=== PATIENT | male | born 1970 | race Caucasian/White ===

== ENCOUNTER 2022-04-02 10:54 | Day surgery (SDC) | payer MEDICAID, SELFPAY ==
[2022-04-02 11:21] VITALS: BP 113/82; PULSE 97; RESP 19; TEMP 36.7; O2SAT 98
[2022-04-02 12:54] VITALS: BP 117/61; PULSE 95; RESP 16; TEMP 36.5; O2SAT 98
--- NOTE | 2022-04-02 13:01 | W.PM.OP ---
Date of service: 04/02/22 Time of Service: 13:01 Operative Note Operative Note DATE OF PROCEDURE: 04/02/22 PRE-OP DIAGNOSIS: Chronic liver disease with tense ascites Tense ascites PROCEDURE: Therapeutic paracentesis 10 mL of 1% lidocaine with epinephrine ESTIMATED BLOOD LOSS: 0 PATHOLOGY: none sent TOURNIQUET TIME: 0 COMPLICATIONS: None Patient was transported to: same day Patient's condition: stable Implants: None Indications: Hill Augustine is a 51-year-old male with chronic alcoholic cirrhosis and tense ascites. He has undergone several rounds of therapeutic paracentesis, and now requires albumin repletion after large-volume paracentesis. He provided informed consent understanding the risks and benefits of therapeutic paracentesis. Findings: Straw-colored ascites Procedure Description: I started by performing a surveillance ultrasound of the abdomen and pelvis that demonstrated large volume ascites. There was a suitable target in the left lower quadrant. Next, I prepped and draped the anterior abdominal wall in the usual fashion. I then infiltrated the anterior abdominal wall using local anesthetic. With ultrasound guidance, I accessed the peritoneal cavity using the arrow brand paracentesis kit. Using negative pressure on the syringe, I advanced the needle into the peritoneum and immediately withdrew all colored ascitic fluid. I held the catheter in place and withdrew the needle. Next, I gently advanced the blunt catheter. I obtained a specimen for paracentesis cell count, ascitic albumin level, and ascitic protein level. Next, using Vacutainer's, I continued with therapeutic paracentesis. We used left lateral decubitus positioning to aid in optimal drainage. Paracentesis drained 7.5 L of ascites. He remained comfortable and hemodynamically stable throughout the procedure. I then removed the catheter and closed the access site using a 4-0 chromic suture in a [id number] fashion. I applied a Band-Aid, and transferred him to the day surgery recovery unit, where he will receive 50 g of 25% albumin intravenous infusion.
[2022-04-02] MEDS: ALBUMIN HUMAN 25 GM/100 ML BTL IV ×2 (13:07→13:43)
--- NOTE | 2022-04-02 13:09 | W.PM.DSUDISC ---
Discharge Plan Disposition Patient Disposition: HOME Condition: Good Discharge Details Reason For Visit: Paracentesis Attending Provider: James Barry Primary Care Provider: FOUZIA GONZALEZ Home Meds and New Rx's Prescriptions: Continued amitriptyline 10 mg tablet 10 mg PO QHS Ensure Active High Protein Liquid PO DAILY PRN omega 2-gni-zhi-fish oil [Fish Oil] 60-90-500 mg capsule 1 cap PO DAILY hydroxyzine HCl 25 mg tablet 25 mg PO TID PRN furosemide [Lasix] 20 mg tablet 20 mg PO DAILY magnesium oxide 400 mg magnesium capsule 400 mg PO DAILY polyethylene glycol 3350 [Miralax] 17 gram/dose powder 17 g PO DAILY omeprazole 20 mg capsule,delayed release(DR/EC) 20 mg PO DAILY spironolactone 100 mg tablet 100 mg PO DAILY Discharge Instructions Stand Alone Forms: DSU Post op Instructions Activity:: Activity as Tolerated Remove Dressings/Wound Care:: 24 hours Shower/Bathe:: 24 hours Diet:: Resume the diet recommended by your liver doctor Discharge Orders Discharge Orders: Discharge Order (Routine); Ordered 04/02/22 Ordered By: James Barry Discharge Data Discharge Comment: Valeria will call to schedule another paracentesis
[2022-04-02 14:07] VITALS: BP 112/74; PULSE 97; RESP 16; TEMP 36.7; O2SAT 100
[2022-04-02 14:11] LABS: Clarity Cloudy; Source Ascitic
[2022-04-02 14:12] LABS: Mononuclear Cells 89 %; Nucleated Cells 351 uL (0); Polynuclear Cells 11 %
[2022-04-02 22:43] LABS: Albumin, Body FLuid <1.0 g/dL (See Note)
[2022-04-03 12:43] LABS: Fluid Type Ascites; Protein,Total, BF 1.7 g/dL
== END 2022-04-02 14:32 | disposition home or self-care (01) ==
PROVIDERS: PCP Family Medicine; Visit Provider Surgery
PROC: 0W9G3ZZ Drainage of Peritoneal Cavity, Percutaneous Approach (ICD-10-PCS; CPT 49082; principal; 2022-04-02 11:30)
DX: K76.89 Other specified diseases of liver (principal); R18.8 Other ascites
CPT/HCPCS: 49082; 82042; 84157; 89051

== ENCOUNTER 2022-04-16 06:21 | Day surgery (SDC) | payer MEDICAID, SELFPAY ==
[2022-04-16 06:35] VITALS: BP 95/65; PULSE 105; RESP 18; TEMP 36.7; O2SAT 97
[2022-04-16] MEDS: Normal Saline Flush 10 ML SYR IV ×2 (07:08→09:00)
--- NOTE | 2022-04-16 07:09 | W.PM.DSUDISC ---
Discharge Plan Disposition Patient Disposition: HOME Condition: Good Discharge Details Reason For Visit: tense ascites Attending Provider: James Barry Primary Care Provider: FOUZIA GONZALEZ Home Meds and New Rx's Prescriptions: Continued amitriptyline 10 mg tablet 10 mg PO QHS Ensure Active High Protein Liquid 125 ml PO DAILY PRN omega 5-yvw-jec-fish oil [Fish Oil] 60-90-500 mg capsule 1 cap PO DAILY hydroxyzine HCl 25 mg tablet 25 mg PO TID PRN furosemide [Lasix] 20 mg tablet 20 mg PO DAILY magnesium oxide 400 mg magnesium capsule 400 mg PO DAILY polyethylene glycol 3350 [Miralax] 17 gram/dose powder 17 g PO DAILY omeprazole 20 mg capsule,delayed release(DR/EC) 20 mg PO DAILY spironolactone 100 mg tablet 100 mg PO DAILY Discharge Instructions Instructions: Ascites (DC), Paracentesis (DC) Additional Instructions: Schedule next paracentisis with office for week of 04/19 Activity:: Activity as Tolerated Remove Dressings/Wound Care:: 24 hours Shower/Bathe:: 24 hours Diet:: As Tolerated Discharge Data Discharge Comment: Notify Jhonny prior to discharge DS: Diagnosis Discharge Diagnosis (1) Ascites due to alcoholic cirrhosis: Status: Acute Asessment and Plan: Therapuetic paracentesisi today
[2022-04-16 08:03] VITALS: BP 92/61; PULSE 82; RESP 16; TEMP 36.7; O2SAT 98
[2022-04-16] MEDS: ALBUMIN HUMAN 25 GM/100 ML BTL IV (08:26)
[2022-04-16 09:11] VITALS: BP 93/61; PULSE 81; RESP 12; TEMP 36.8; O2SAT 99
--- NOTE | 2022-04-16 09:48 | W.PM.DSUDISC ---
Discharge Plan Disposition Patient Disposition: HOME Condition: Good Discharge Details Reason For Visit: tense ascites Attending Provider: James Barry Primary Care Provider: FOUZIA GONZALEZ Home Meds and New Rx's Prescriptions: Continued amitriptyline 10 mg tablet 10 mg PO QHS Ensure Active High Protein Liquid 125 ml PO DAILY PRN omega 1-vce-csj-fish oil [Fish Oil] 60-90-500 mg capsule 1 cap PO DAILY hydroxyzine HCl 25 mg tablet 25 mg PO TID PRN furosemide [Lasix] 20 mg tablet 20 mg PO DAILY magnesium oxide 400 mg magnesium capsule 400 mg PO DAILY polyethylene glycol 3350 [Miralax] 17 gram/dose powder 17 g PO DAILY omeprazole 20 mg capsule,delayed release(DR/EC) 20 mg PO DAILY spironolactone 100 mg tablet 100 mg PO DAILY Discharge Instructions Instructions: Ascites (DC), Paracentesis (DC) Additional Instructions: Schedule next paracentisis with office for week of 04/19 Stand Alone Forms: Stacie Phelps (FREDRICKU) Activity:: Activity as Tolerated Remove Dressings/Wound Care:: 24 hours Shower/Bathe:: 24 hours Diet:: As Tolerated Discharge Orders Discharge Orders: Discharge Order (Routine); Ordered 04/16/22 Ordered By: James Barry DS: Diagnosis Discharge Diagnosis (1) Ascites due to alcoholic cirrhosis: Status: Acute
--- NOTE | 2022-04-16 10:25 | W.PM.OP ---
Date of service: 04/16/22 Time of Service: 10:25 Operative Note Operative Note DATE OF PROCEDURE: 04/16/22 PRE-OP DIAGNOSIS: alcoholic cirrhosis with tense ascites POST-OP DIAGNOSIS: same PROCEDURE: therapeutic paracentesis SURGEON: James Barry ANESTHESIA TYPE: Local By Surgeon Refer to Anesthesia Record ESTIMATED BLOOD LOSS: 0 COMPLICATIONS: None Patient's condition: stable Procedure Description: I began by first performing a diagnostic ultrasound to identify ascites. Next, I prepped and draped the anterior abdominal wall in the usual fashion. Then, with the assistance of the ultrasound, I infiltrated the skin of the right lower quadrant with 1% epinephrine. Again, using the ultrasound, I anesthetized down to the peritoneal level. Next, under the direct vision of the ultrasound, I advanced the Kerr needle into the peritoneal cavity. I then affixed catheter tubing and drained into a 1 L Vacutainer. As the ascites drained, I gently assisted the patient into the right lateral decubitus position to assist with drainage. I drained 7.5 L of straw-colored ascitic fluid. Upon completion of drainage, I gently removed the Kerr needle and closed the site with a interrupted [id number] suture. Applied bandages, and returned the patient to the recovery unit for further monitoring.
== END 2022-04-16 10:08 | disposition home or self-care (01) ==
PROVIDERS: PCP Family Medicine; Visit Provider Surgery
PROC: 0W9G3ZZ Drainage of Peritoneal Cavity, Percutaneous Approach (ICD-10-PCS; CPT 49082; principal; 2022-04-16 07:30)
DX: K70.31 Alcoholic cirrhosis of liver with ascites (principal)
CPT/HCPCS: 49082; 96365

== ENCOUNTER 2022-05-13 06:11 | Day surgery (SDC) | payer MEDICAID, SELFPAY ==
[2022-05-13 06:24] VITALS: BP 109/83; PULSE 100; RESP 17; TEMP 37; O2SAT 97
[2022-05-13] MEDS: Lactated Ringers 1,000 ML 30 ML IV (06:40)
--- NOTE | 2022-05-13 07:11 | W.PM.DS.N ---
Date of service: 05/13/22 Discharge Plan Disposition Patient Disposition: HOME Condition: Good Discharge Details Reason For Visit: paracentesis Attending Provider: James Barry Primary Care Provider: FOUZIA GONZALEZ Home Meds and New Rx's Prescriptions: No Action amitriptyline 10 mg tablet 10 mg PO QHS Ensure Active High Protein Liquid 125 ml PO DAILY PRN omega 6-obx-wbe-fish oil [Fish Oil] 60-90-500 mg capsule 1 cap PO DAILY hydroxyzine HCl 25 mg tablet 25 mg PO TID PRN furosemide [Lasix] 20 mg tablet 20 mg PO DAILY magnesium oxide 400 mg magnesium capsule 400 mg PO DAILY polyethylene glycol 3350 [Miralax] 17 gram/dose powder 17 g PO DAILY omeprazole 20 mg capsule,delayed release(DR/EC) 20 mg PO DAILY spironolactone 100 mg tablet 100 mg PO DAILY DS: Data Vitals/I&O Vitals and I&O: Vital Signs Temperature 98.6 F 05/13/22 06:24 Pulse 100 H 05/13/22 06:24 Pulse Rhythm Regular 05/13/22 06:24 Respiratory Rate 17 05/13/22 06:24 Blood Pressure 109/83 05/13/22 06:24 Pulse Oximetry 97 05/13/22 06:24 Oxygen Delivery Method Room Air 05/13/22 06:24 Oxygen Flow Rate 0 05/13/22 06:24 Pain Level 2 05/13/22 06:24 Intake & Output 05/12/22 05/12/22 05/13/22 11:59 23:59 11:59 Weight 152 lb 12.485 oz PFSH All Active Problems Ascites due to alcoholic cirrhosis (Acute) Tobacco user (Acute) Liver mass (Acute) Hyponatremia (Acute) Hypokalemia (Acute) Elevated liver enzymes (Acute) Ascites due to alcoholic cirrhosis (Acute) Alcoholism (Acute) Medical History ADHD Anxiety Deficiency of folic acid Hyperlipidemia Impaired fasting glucose Leukocytosis Mixed anxiety and depressive disorder Subclinical hyperthyroidism Social History Smoking/Tobacco Use Status: Current every day Tobacco Type: cigarettes Years smoked: 35 Smoking risk assessment performed?: Yes Alcohol Intake: former Substance use type: does not use Do you feel safe at home: Yes Do you feel safe in your relationship?: Yes
--- NOTE | 2022-05-13 07:14 | W.PM.DSUDISC ---
Discharge Plan Disposition Patient Disposition: HOME Condition: Good Discharge Details Reason For Visit: paracentesis Attending Provider: James Barry Primary Care Provider: FOUZIA GONZALEZ Home Meds and New Rx's Prescriptions: Continued amitriptyline 10 mg tablet 10 mg PO QHS Ensure Active High Protein Liquid 125 ml PO DAILY PRN omega 8-wwf-pql-fish oil [Fish Oil] 60-90-500 mg capsule 1 cap PO DAILY hydroxyzine HCl 25 mg tablet 25 mg PO TID PRN furosemide [Lasix] 20 mg tablet 20 mg PO DAILY magnesium oxide 400 mg magnesium capsule 400 mg PO DAILY polyethylene glycol 3350 [Miralax] 17 gram/dose powder 17 g PO DAILY omeprazole 20 mg capsule,delayed release(DR/EC) 20 mg PO DAILY spironolactone 100 mg tablet 100 mg PO DAILY Discharge Instructions Instructions: Paracentesis (DC) Additional Instructions: 1. If tolerated, consume a soft, low fiber diet for 1-2 days[address] not drive, drink alcohol, operate machinery, make critical decisions, or do activities that require coordination or balance for 24 hours. 3. Go directly to the emergency room if you notice any of the following: Develop chills (warm to touch), or if you have a thermometer and your temperature is above 101 Difficulty breathing or difficultly swallowing Persistent vomiting Severe abdominal pain, other than gas cramps Severe chest pain Black, tarry stools Any bleeding ? exceeding one tablespoon 4. Call your physician if the site where your intravenous was started becomes red, swollen, painful, and warm to touch. 5. Your physician has reviewed your pre-procedure medications. Please continue to take those medications as previously ordered. You will be given specific information/education regarding any changes to your medications before leaving. Activity:: Activity as Tolerated Remove Dressings/Wound Care:: 24 hours Shower/Bathe:: 24 hours Diet:: As Tolerated Discharge Orders Discharge Orders: Discharge Order (Routine); Ordered 05/13/22 Ordered By: James Barry Discharge Data Discharge Comment: d/c home after albumin infusion DS: Diagnosis Discharge Diagnosis (1) Ascites due to alcoholic cirrhosis: Start date: 05/13/22 Status: Acute Asessment and Plan: uncomplicated paracentesis of 8 liters ascises; replete with 50 gm Albumin IV
--- NOTE | 2022-05-13 07:17 | W.PM.OP ---
Date of service: 05/13/22 Time of Service: 08:30 Operative Note Operative Note DATE OF PROCEDURE: 05/13/22 PRE-OP DIAGNOSIS: tense ascites POST-OP DIAGNOSIS: same PROCEDURE: therapeutic parenthesis SURGEON: James Barry ANESTHESIA TYPE: Local By Surgeon Refer to Anesthesia Record ESTIMATED BLOOD LOSS: 0 PATHOLOGY: other (Ascites for cell count, total protein, and albumin) COMPLICATIONS: None Patient was transported to: same day Patient's condition: stable Indications: Hill is a 51-year-old male with alcoholic cirrhosis and tense ascites. Over the past several days, he has had increasing lethargy and abdominal discomfort. He presents today for therapeutic paracentesis. He provided informed consent. Procedure Description: I started by performing a limited ultrasound of the abdomen to identify appropriate site for paracentesis. Next, I selected the left lower quadrant as the ideal site for paracentesis. I then prepped and draped the abdomen. Next, using ultrasound guidance, I anesthetized the skin with 1% lidocaine with epinephrine. I used the ultrasound to guide the needle down to the peritoneal level which was also anesthetized. I then made a small incision in the skin with a 11 blade scalpel. Next, I advanced the 5 Vietnamese paracentesis needle and catheter through the incision and into the peritoneal cavity under the direct vision of the ultrasound. I aspirated straw-colored appearing ascites. Next, I gently advance the catheter and remove the needle. I affixed drainage tubing, and began draining the ascites with the assistance of Vacutainer's. I drained 8 L of ascites. As the flow decreased, I assisted the patient to the left lateral decubitus position to improve drainage. Once the ascites stopped flowing, I removed the catheter and used a Band-Aid to dress the wound.
[2022-05-13] MEDS: Lidocaine 1% Pres-Free 5 ML VIAL IJ (07:35)
--- NOTE | 2022-05-13 07:44 | PAPNONF_PTH ---
PATIENT: Hill Augustine LOC: [facility] U#:[id number] AGE/SX: 51/M ROOM: RE05/13/[address]: James Barry MD : [id number] BED: DIS: 05/13/2022 SPEC #: [id number] RECD: 05/13/22 13:03 STATUS: SALMarcie REQ #: [id number] MYLA: 05/13/22 07:[address]: James Barry DEPT: [facility] Cytology RECD BY: Lee Ann Minor ENTERED: 05/13/22 13:04 SP TYPE: DUANE PICKENS DR: FOUZIA BEYER MD Tissues: 1 - BODY FLUID CYTO(NOT S/U/N/EM)[facility] Procedures: BODY FLUID CYTO(NOT SPU/UR/NIP/ENDOM)[facility] Comments: [id number] (TOTAL VOLUME = 900 ml)
[2022-05-13 08:28] VITALS: BP 103/71; PULSE 88; RESP 18; TEMP 36.4; O2SAT 99
[2022-05-13] MEDS: ALBUMIN HUMAN 25 GM/100 ML BTL IV (08:45)
[2022-05-13 09:31] LABS: Clarity Clear; Mononuclear Cells 99 %; Nucleated Cells 384 uL (0); Polynuclear Cells 1 %; Source Peritoneal
[2022-05-13 17:32] LABS: Albumin, Body FLuid 1.1 g/dL (See Note)
[2022-05-14 12:51] LABS: Protein,Total, BF 2.4 g/dL
== END 2022-05-13 09:20 | disposition home or self-care (01) ==
PROVIDERS: PCP Family Medicine; Visit Provider Surgery
PROC: 0W9G3ZZ Drainage of Peritoneal Cavity, Percutaneous Approach (ICD-10-PCS; CPT 49082; principal; 2022-05-13 07:30)
DX: K70.31 Alcoholic cirrhosis of liver with ascites (principal)
CPT/HCPCS: 49082; 82042; 84157; 88104; 89051

== ENCOUNTER 2022-06-08 10:53 | PSDC | payer MEDICAID, SELFPAY ==
--- NOTE | 2022-06-08 09:22 | PDOC.DSDIS_ITS ---
Discharge Plan Disposition Patient Disposition: HOME Condition: Good Discharge Details Reason For Visit: paracentesis Attending Provider: James Barry Primary Care Provider: TRISHA GARIBAYBertrand Chaffee Hospital Course Hospital Course: uncomplicated paracentesis with albumin infusion Home Meds and New Rx's Prescriptions: Continued amitriptyline 10 mg tablet 10 mg PO QHS Ensure Active High Protein Liquid 125 ml PO DAILY PRN omega 5-dgc-rnn-fish oil [Fish Oil] 60-90-500 mg capsule 1 cap PO DAILY hydroxyzine HCl 25 mg tablet 25 mg PO TID PRN furosemide [Lasix] 20 mg tablet 20 mg PO DAILY magnesium oxide 400 mg magnesium capsule 400 mg PO DAILY polyethylene glycol 3350 [Miralax] 17 gram/dose powder 17 g PO DAILY omeprazole 20 mg capsule,delayed release(DR/EC) 20 mg PO DAILY spironolactone 100 mg tablet 100 mg PO DAILY Discharge Instructions Additional Instructions: [address], drink alcohol, operate machinery, make critical decisions, or do activities that require coordination or balance for 24 hours. 2. Go directly to the emergency room if you notice any of the following: Develop chills (warm to touch), or if you have a thermometer and your temperature is above 101 Difficulty breathing or difficultly swallowing Persistent vomiting Severe abdominal pain, other than gas cramps Severe chest pain Black, tarry stools Any bleeding ? exceeding one tablespoon 3. Call your physician if the site where your intravenous was started becomes red, swollen, painful, and warm to touch. 4. Your physician has reviewed your pre-procedure medications. Please continue to take those medications as previously ordered. You will be given specific information/education regarding any changes to your medications before leaving. Activity:: Activity as Tolerated Remove Dressings/Wound Care:: 24 hours Shower/Bathe:: 24 hours Equipment/Supplies:: No Equipment Needed Diet:: As Tolerated DS: Diagnosis Discharge Diagnosis (1) Ascites due to alcoholic cirrhosis: Status: Acute Asessment and Plan: Schedule next paracentesis as needed
--- NOTE | 2022-06-08 09:25 | ROE_ITS ---
Date of service: 06/08/22 Operative Note Operative Note DATE OF PROCEDURE: 06/08/22 PRE-OP DIAGNOSIS: Tense ascites POST-OP DIAGNOSIS: same PROCEDURE: Therapeutic parenthesis SURGEON: Chapito Barry Refer to Anesthesia Record ESTIMATED BLOOD LOSS: 10 COMPLICATIONS: None Patient was transported to: same day Patient's condition: stable Indications: Hill is a 51-year-old male with alcoholic cirrhosis and ascites. He is treated with multiple medications to help minimize ascites, but he continues to develop significant amount of abdominal discomfort as well as fatigue and shortness of breath associated with the fluid. Procedure Description: I started by performing a limited ultrasound of the abdomen to identify appropriate site for paracentesis. Next, I selected the left abdomen as the ideal site for paracentesis. I then prepped and draped the abdomen. Next, using ultrasound guidance, I anesthetized the skin with 1% lidocaine with epinephrine. I used the ultrasound to guide the needle down to the peritoneal level which was also anesthetized. I then made a small incision in the skin with a 11 blade scalpel. Next, I advanced the 5 Upper Sorbian paracentesis needle and catheter through the incision and into the peritoneal cavity under the direct vision of the ultrasound. I aspirated straw-colored appearing ascites. Next, I gently advance the catheter and remove the needle. I affixed drainage tubing, and began draining the ascites with the assistance of Vacutainer's. I drained 7.5 L of ascites. As the flow decreased, I assisted the patient to the left lateral decubitus position to improve drainage. Once the ascites stopped flowing, I removed the catheter and used Band-Aid to address wound.
[2022-06-08 11:25] VITALS: BP 120/84; PULSE 105; RESP 18; TEMP 36.2; O2SAT 98
[2022-06-08] MEDS: ALBUMIN HUMAN 25 GM/100 ML BTL IV ×2 (12:45→13:22)
[2022-06-08 12:47] VITALS: BP 119/78; PULSE 103; RESP 18; TEMP 37.5; O2SAT 100
--- NOTE | 2022-06-08 12:51 | W.PM.DSUDISC ---
Discharge Plan Disposition Patient Disposition: HOME Condition: Good Discharge Details Reason For Visit: paracentesis Attending Provider: James Barry Primary Care Provider: RICOSAY GARIBAYClifton-Fine Hospital Course Hospital Course: uncomplicated paracentesis Home Meds and New Rx's Prescriptions: Continued amitriptyline 10 mg tablet 10 mg PO QHS Ensure Active High Protein Liquid 125 ml PO DAILY PRN omega 3-uve-usm-fish oil [Fish Oil] 60-90-500 mg capsule 1 cap PO DAILY hydroxyzine HCl 25 mg tablet 25 mg PO TID PRN furosemide [Lasix] 20 mg tablet 20 mg PO DAILY magnesium oxide 400 mg magnesium capsule 400 mg PO DAILY polyethylene glycol 3350 [Miralax] 17 gram/dose powder 17 g PO DAILY omeprazole 20 mg capsule,delayed release(DR/EC) 20 mg PO DAILY spironolactone 100 mg tablet 100 mg PO DAILY Discharge Instructions Additional Instructions: [address], drink alcohol, operate machinery, make critical decisions, or do activities that require coordination or balance for 24 hours. 2. Go directly to the emergency room if you notice any of the following: Develop chills (warm to touch), or if you have a thermometer and your temperature is above 101 Difficulty breathing or difficultly swallowing Persistent vomiting Severe abdominal pain, other than gas cramps Severe chest pain Black, tarry stools Any bleeding ? exceeding one tablespoon 3. Call your physician if the site where your intravenous was started becomes red, swollen, painful, and warm to touch. 4. Your physician has reviewed your pre-procedure medications. Please continue to take those medications as previously ordered. You will be given specific information/education regarding any changes to your medications before leaving. Activity:: Activity as Tolerated Remove Dressings/Wound Care:: 24 hours Shower/Bathe:: 24 hours Equipment/Supplies:: No Equipment Needed Diet:: As Tolerated Discharge Orders Discharge Orders: Discharge Order (Routine); Ordered 06/08/22 Ordered By: James Barry Discharge Data Discharge Physician: James Barry DS: Diagnosis Discharge Diagnosis (1) Ascites due to alcoholic cirrhosis: Status: Acute Asessment and Plan: schedule next paracentesis as needed
[2022-06-08 13:54] LABS: Source Peritoneal
[2022-06-08 13:55] LABS: Clarity Clear; Mononuclear Cells 98 %; Nucleated Cells 401 uL (0); Polynuclear Cells 2 %
[2022-06-08 22:02] LABS: Albumin, Body FLuid 1.3 g/dL (See Note)
[2022-06-09 14:50] LABS: Fluid Type LEFT PARACENTESIS; Protein,Total, BF 2.7 g/dL
== END 2022-06-08 14:15 | disposition home or self-care (01) ==
LOC: SUR 10:54
PROVIDERS: PCP Family Medicine; Visit Provider Surgery
PROC: 0W9G3ZZ Drainage of Peritoneal Cavity, Percutaneous Approach (ICD-10-PCS; CPT 49082; principal; 2022-06-08 11:45)
DX: K70.31 Alcoholic cirrhosis of liver with ascites (principal)
CPT/HCPCS: 49082; 82042; 84157; 89051

== ENCOUNTER 2022-07-06 10:57 | Day surgery (SDC) | payer MEDICAID, SELFPAY ==
--- NOTE | 2022-07-06 10:15 | ROE_ITS ---
Date of service: 07/06/22 Time of Service: 13:33 Operative Note Operative Note DATE OF PROCEDURE: 07/06/22 PRE-OP DIAGNOSIS: ascitis secondary to alcoholic cirrhosis POST-OP DIAGNOSIS: same PROCEDURE: parasenthesis SURGEON: Siobhan Blakely ANESTHESIA TYPE: Local By Surgeon Refer to Anesthesia Record ESTIMATED BLOOD LOSS: 0 PATHOLOGY: none sent COMPLICATIONS: None Patient was transported to: same day Patient's condition: stable Indications: Mr. Augustine is a pleasant 51 year old male with alcoholic cirrhosis and recurrent ascitis who comes in again today for a parasenthesis. Last time he was here was about 2 1/2 weeks ago. Findings: Clear yellow fluid Procedure Description: After informed consent was obtained from the patient was placed on the gurney table in a supine position. The left lower quadrant was prepped and draped in a sterile surgical fashion. 1% lidocaine was injected into the dermis and down to the fascia. A small incision was made with an 11 blade. The needle and sheath that came in the kit was slowly advanced through the subcutaneous tissue and the peritoneum into the abdomen. As soon as serous fluid was suctioned the sheath was advanced over the needle into the abdomen and the needle was removed. The sheath was then attached to suction canisters and a total of 6.8 L of serous fluid was removed without complication. The patient's blood pressure was checked throughout the procedure and continued to stay stable in the low 100s. Once the procedure was done the sheath was removed and a pressure dressing was applied over the incision. Patient did well and there were no immediate complications. He was taken back to [facility] and given albumin
--- NOTE | 2022-07-06 10:17 | W.PM.DSUDISC ---
Discharge Plan Disposition Patient Disposition: HOME Condition: Good Discharge Details Reason For Visit: parasenthesis Attending Provider: Siobhan Blakely Primary Care Provider: FOUZIA GONZALEZ Home Meds and New Rx's Prescriptions: New zolpidem [Ambien] 5 mg tablet 5 mg PO QHS PRNQty: 90 3RF Continued amitriptyline 10 mg tablet 10 mg PO QHS Ensure Active High Protein Liquid 125 ml PO DAILY PRN omega 6-oak-vms-fish oil [Fish Oil] 60-90-500 mg capsule 1 cap PO DAILY hydroxyzine HCl 25 mg tablet 25 mg PO TID PRN furosemide [Lasix] 20 mg tablet 20 mg PO DAILY magnesium oxide 400 mg magnesium capsule 400 mg PO DAILY polyethylene glycol 3350 [Miralax] 17 gram/dose powder 17 g PO DAILY omeprazole 20 mg capsule,delayed release(DR/EC) 20 mg PO DAILY spironolactone 100 mg tablet 100 mg PO DAILY tramadol 100 mg tablet 100 mg PO BID PRN (Reason: pain) Qty: 20 0RF Rx Instructions: take 1 tab by mouth as needed for pain Discontinued zolpidem [Ambien] 5 mg tablet 5 mg PO QHS PRN (Reason: sleep) Qty: 14 0RF Rx Instructions: take one tab by mouth at nighttime as needed for insomnia Discharge Instructions Additional Instructions: Activity at Home after surgery: 1. As tolerated Diet, Nutrition, & wound healin. heart Healthy, low sodium Pain Medications: 1. Tylenol 650mg every 6 hours as needed For Constipation: 1. Take Milk of Magnesia or MiraLax as needed for constipation Other: 1. You may shower daily. Please call our office if you develop: 1. Fevers >101.5 2. Nausea or Vomiting 3. Worsening pain 4. Redness and thick discharge from the wounds If after hours please call the Hospital at and ask to speak to the on-call surgeon Activity:: Activity as Tolerated Shower/Bathe:: 24 hours Diet:: As Tolerated Discharge Orders Discharge Orders: Discharge Order (Routine); Ordered 07/06/22 Ordered By: Siobhan Blakely
[2022-07-06 11:31] VITALS: BP 111/77; PULSE 96; RESP 18; TEMP 36.7; O2SAT 99
[2022-07-06 13:35] VITALS: BP 100/68; PULSE 89; RESP 18; TEMP 36.5; O2SAT 100
--- NOTE | 2022-07-06 13:37 | W.PREOPHP ---
Assessment and Plan Assessment and plan (1) Ascites due to alcoholic cirrhosis: Status: Acute Assessment and plan: Mr. Augustine is here today for another parasenthesis. The proceedure was again explained as well as the risks, benefits and complications. Questions were entertained and answered and he wished to proceed. History of Present Illness Narrative: Mr. Augustine is a pleasant 51 year old male with a hx of alcoholic cirrhosis and ascitis who has been getting parasenthesis regularly. His last one was 2 1/2 weeks ago. He is feeling full and having a lot of pressure especially around his umbilical hernia. He denies any SOB. he has had no fevers or chills. Review of Systems All systems reviewed & are unremarkable except as noted in HPI and below PFSH All Active Problems (Updated 07/06/22 @ 13:41 by Siobhan Blakely MD) Ascites due to alcoholic cirrhosis (Acute) Tobacco user (Acute) Liver mass (Acute) Hyponatremia (Acute) Hypokalemia (Acute) Elevated liver enzymes (Acute) Alcoholism (Acute) Medical History ADHD Anxiety Deficiency of folic acid Hyperlipidemia Impaired fasting glucose Leukocytosis Mixed anxiety and depressive disorder Subclinical hyperthyroidism Social History Smoking/Tobacco Use Status: Current every day Tobacco Type: cigarettes Years smoked: 35 Smoking risk assessment performed?: Yes Alcohol Intake: former Drug use: Occasionally Substance use type: marijuana Details: Bowl w/friends on occassion Do you feel safe at home: Yes Do you feel safe in your relationship?: Yes Meds Allergies and Home Medications Allergies Allergy/AdvReac Type Severity Reaction Status Date / Time COVID-19 (SARS-CoV-2) Allergy Intermediate Skin Rash Verified 05/13/22 06:30 vaccine, alirio chlordiazepoxide Allergy Unknown Verified 05/13/22 06:30 levofloxacin Allergy Unknown Hives Verified 05/13/22 06:30 naltrexone AdvReac Intermediate abdominal Verified 05/13/22 06:30 pain-Pt is not sure Home Medications Medication Instructions Recorded Confirmed Type amitriptyline 10 mg tablet 10 mg PO QHS 03/31/22 07/06/22 History food supplemt, lactose-reduced 125 ml PO DAILY PRN 03/31/22 07/06/22 History (Ensure Active High Protein oral liquid) furosemide 20 mg tablet (Lasix) 20 mg PO DAILY 03/31/22 07/06/22 History hydroxyzine HCl 25 mg tablet 25 mg PO TID PRN 03/31/22 07/06/22 History magnesium oxide 400 mg PO DAILY 03/31/22 07/06/22 History omega 5-eut-yir-fish oil 60 mg-90 1 cap PO DAILY 03/31/22 07/06/22 History mg-500 mg capsule (Fish Oil) omeprazole 20 mg capsule,delayed 20 mg PO DAILY 03/31/22 07/06/22 History release polyethylene glycol 3350 17 17 g PO DAILY 03/31/22 07/06/22 History gram/dose oral powder (Miralax) spironolactone 100 mg tablet 100 mg PO DAILY 03/31/22 07/06/22 History tramadol 100 mg tablet 100 mg PO BID PRN pain #20 tabs 06/12/22 07/06/22 Rx zolpidem 5 mg tablet (Ambien) 5 mg PO QHS PRN #90 tabs 07/06/22 Rx Exam Const General: comfortable and no acute distress Orientation: alert and oriented x3 HENMT Head: normocephalic and atraumatic Resp Effort & Inspection: normal respiratory effort GI Inspection: distended Palpation: soft and ascites Results Last Vital Signs Temp 98.1 F 07/06/22 11:31 Pulse 96 H 07/06/22 11:31 Resp 18 07/06/22 11:31 BP 111/77 07/06/22 11:31 Pulse Ox 99 07/06/22 11:31
[2022-07-06 14:15] VITALS: BP 100/63; PULSE 86; RESP 18; TEMP 36.5; O2SAT 100
[2022-07-06] MEDS: ALBUMIN HUMAN 25 GM/100 ML BTL IVPB (14:16)
[2022-07-06] MEDS: ALBUMIN HUMAN 25 GM/100 ML BTL 100 GM (14:17)
[2022-07-06 22:10] LABS: Albumin, Body FLuid 1.3 g/dL (See Note)
[2022-07-07 13:01] LABS: Fluid Type Peritoneal; Protein,Total, BF 2.8 g/dL
== END 2022-07-06 14:55 | disposition home or self-care (01) ==
PROVIDERS: PCP Family Medicine; Visit Provider Surgery
PROC: 0W9G3ZZ Drainage of Peritoneal Cavity, Percutaneous Approach (ICD-10-PCS; CPT 49082; principal; 2022-07-06 12:15)
DX: K70.31 Alcoholic cirrhosis of liver with ascites (principal)
CPT/HCPCS: 49082; 82042; 96365; 84157

== ENCOUNTER 2022-07-24 11:34 | Day surgery (SDC) | payer MEDICAID, SELFPAY ==
--- NOTE | 2022-07-24 06:01 | W.PM.OP ---
Date of service: 07/24/22 Time of Service: 14:57 Operative Note Operative Note DATE OF PROCEDURE: 07/24/22 PRE-OP DIAGNOSIS: Tense ascites POST-OP DIAGNOSIS: same PROCEDURE: Paracentesis SURGEON: James Barry ANESTHESIA TYPE: Local By Surgeon Refer to Anesthesia Record ESTIMATED BLOOD LOSS: 5 COMPLICATIONS: None Patient was transported to: same day Procedure Description: I started by performing a limited ultrasound of the abdomen to identify appropriate site for paracentesis. Next, I selected the right lower quadrant as the ideal site for paracentesis. I then prepped and draped the abdomen. Next, using ultrasound guidance, I anesthetized the skin with 1% lidocaine with epinephrine. I used the ultrasound to guide the needle down to the peritoneal level which was also anesthetized. I then made a small incision in the skin with a 11 blade scalpel. Next, I advanced the 5 [place] paracentesis needle and catheter through the incision and into the peritoneal cavity under the direct vision of the ultrasound. I aspirated straw-colored appearing ascites. Next, I gently advance the catheter and remove the needle. I affixed drainage tubing, and began draining the ascites with the assistance of Vacutainer's. I drained 6900 mL of ascites. As the flow decreased, I assisted the patient to the right lateral decubitus position to improve drainage. Once the ascites stopped flowing, I removed the catheter and used a bandaide to dress the wound.
--- NOTE | 2022-07-24 06:01 | W.PM.DSUDISC ---
Date of service: 07/24/22 Time of Service: 14:56 Discharge Plan Disposition Patient Disposition: HOME Condition: Good Discharge Details Reason For Visit: paracentesis Attending Provider: James Barry Primary Care Provider: FOUZIA GONZALEZ Home Meds and New Rx's Prescriptions: Continued amitriptyline 10 mg tablet 10 mg PO QHS Ensure Active High Protein Liquid 125 ml PO DAILY PRN omega 5-afg-egc-fish oil [Fish Oil] 60-90-500 mg capsule 1 cap PO DAILY hydroxyzine HCl 25 mg tablet 25 mg PO TID PRN furosemide [Lasix] 20 mg tablet 20 mg PO DAILY magnesium oxide 400 mg magnesium capsule 400 mg PO DAILY polyethylene glycol 3350 [Miralax] 17 gram/dose powder 17 g PO DAILY PRN omeprazole 20 mg capsule,delayed release(DR/EC) 20 mg PO DAILY spironolactone 100 mg tablet 100 mg PO DAILY tramadol 100 mg tablet 100 mg PO BID PRN (Reason: pain) Qty: 20 0RF Rx Instructions: take 1 tab by mouth as needed for pain zolpidem [Ambien] 5 mg tablet 5 mg PO QHS PRNQty: 90 3RF Discharge Instructions Instructions: Paracentesis (DC) Activity:: Activity as Tolerated Remove Dressings/Wound Care:: 24 hours Shower/Bathe:: 24 hours Diet:: As Tolerated Discharge Orders Discharge Orders: Discharge Order (Routine); Ordered 07/24/22 Ordered By: James Barry DS: Diagnosis Discharge Diagnosis (1) Tense ascites: Status: Acute Asessment and Plan: I will call you regarding the umbilical hernia
[2022-07-24 12:45] VITALS: BP 126/89; PULSE 107; RESP 16; TEMP 37; O2SAT 97
[2022-07-24] MEDS: Normal Saline Flush 10 ML SYR IV (13:37)
[2022-07-24 14:50] VITALS: BP 127/88; PULSE 96; RESP 18; TEMP 36.5; O2SAT 98
[2022-07-24] MEDS: ALBUMIN HUMAN 25 GM/100 ML BTL IVPB ×2 (15:06→15:36)
== END 2022-07-24 16:10 | disposition home or self-care (01) ==
LOC: SUR 11:34
PROVIDERS: PCP Family Medicine; Visit Provider Surgery
PROC: 0W9G3ZZ Drainage of Peritoneal Cavity, Percutaneous Approach (ICD-10-PCS; CPT 49082; principal; 2022-07-24 13:30)
DX: R18.8 Other ascites (principal)
CPT/HCPCS: 49082

== ENCOUNTER 2022-09-08 10:19 | Day surgery (SDC) | payer MEDICAID, SELFPAY ==
--- NOTE | 2022-09-07 19:37 | W.PM.DSUDISC ---
Date of service: 09/08/22 Time of Service: 12:19 Discharge Plan Disposition Patient Disposition: Home Condition: Good Discharge Details Reason For Visit: Therapuetic paracentesis Attending Provider: James Barry Primary Care Provider: FOUZIA GONZALEZ Home Meds and New Rx's Prescriptions: Continued amitriptyline 10 mg tablet 10 mg PO QHS Ensure Active High Protein Liquid 125 ml PO DAILY PRN omega 3-yap-smt-fish oil [Fish Oil] 60-90-500 mg capsule 1 cap PO DAILY hydroxyzine HCl 25 mg tablet 25 mg PO TID PRN furosemide [Lasix] 20 mg tablet 20 mg PO DAILY magnesium oxide 400 mg magnesium capsule 400 mg PO DAILY polyethylene glycol 3350 [Miralax] 17 gram/dose powder 17 g PO DAILY PRN omeprazole 20 mg capsule,delayed release(DR/EC) 20 mg PO DAILY spironolactone 100 mg tablet 100 mg PO DAILY tramadol 100 mg tablet 100 mg PO BID PRN (Reason: pain) Qty: 20 0RF Rx Instructions: take 1 tab by mouth as needed for pain zolpidem [Ambien] 5 mg tablet 5 mg PO QHS PRNQty: 90 3RF No Action milk thistle 200 mg Capsule 200 mg PO DAILY Rx Instructions: give with meal/snack potassium chloride 20 mEq tablet,ER particles/crystals 1 tab PO QWEEK Label Comments: TAKE ONE TABLET BY MOUTH THREE TIMES TODAY. THEN DECREASE TO TAKE ONE TABLET BY MOUTH EVERY MORNING dandelion root 500 mg Capsule 500 mg PO DAILY folic acid 1 mg tablet 1 tab PO DAILY Label Comments: TAKE ONE TABLET BY MOUTH EVERY DAY zinc 50 mg Tablet 50 mg PO DAILY Discharge Instructions Instructions: Paracentesis (DC) Activity:: Activity as Tolerated Remove Dressings/Wound Care:: 24 hours Shower/Bathe:: 24 hours Diet:: As Tolerated Discharge Orders Discharge Orders: Discharge Order (Routine); Ordered 09/07/22 Ordered By: James Barry DS: Diagnosis Discharge Diagnosis (1) Ascites due to alcoholic cirrhosis: Status: Acute Asessment and Plan: Schedule your next paracentesis as needed
--- NOTE | 2022-09-07 19:38 | W.PM.OP ---
Date of service: 09/08/22 Time of Service: 12:19 Operative Note Operative Note DATE OF PROCEDURE: 09/08/22 PRE-OP DIAGNOSIS: Ascites POST-OP DIAGNOSIS: same PROCEDURE: Therapeutic paracentesis SURGEON: James Barry 3 ml 1% lidocaine ESTIMATED BLOOD LOSS: 0 PATHOLOGY: none sent COMPLICATIONS: None Patient was transported to: same day Patient's condition: stable Indications: Rodríguez is a 52-year-old male with alcoholic cirrhosis holding in tense ascites requiring intermittent paracentesis. Findings: 6.5 L of straw-colored ascites Procedure Description: I started by performing a limited ultrasound of the abdomen to identify appropriate site for paracentesis. Next, I selected the left lower quadrant as the ideal site for paracentesis. I then prepped and draped the abdomen. Next, using ultrasound guidance, I anesthetized the skin with 1% lidocaine with epinephrine. I used the ultrasound to guide the needle down to the peritoneal level which was also anesthetized. I then made a small incision in the skin with a 11 blade scalpel. Next, I advanced the 5 [place] paracentesis needle and catheter through the incision and into the peritoneal cavity under the direct vision of the ultrasound. I aspirated straw-colored ascites. Next, I gently advance the catheter and remove the needle. I affixed drainage tubing, and began draining the ascites with the assistance of Vacutainer's. I drained 5000 mL of ascites. As the flow decreased, I assisted the patient to the left lateral decubitus position to improve drainage, I also transitioned to hand pumping. Using a syringe, I pumped another 1500 mL of ascites. Once the ascites stopped flowing, I removed the catheter and used a Band-Aid to dress the wound.
[2022-09-08 10:29] VITALS: BP 125/81; PULSE 85; RESP 16; TEMP 36.6; O2SAT 99
[2022-09-08 12:20] VITALS: BP 111/71; PULSE 75; RESP 16; TEMP 36.4; O2SAT 100
[2022-09-08] MEDS: ALBUMIN HUMAN 25 GM/100 ML BTL IVPB (12:31)
[2022-09-08 14:03] LABS: Clarity Clear; Mononuclear Cells 94 %; Nucleated Cells 382 uL (0); Polynuclear Cells 6 %; Source Peritoneal
[2022-09-08 22:39] LABS: Albumin, Body FLuid 1.5 g/dL (See Note)
[2022-09-09 17:03] LABS: Fluid Type Peritoneal; Protein,Total, BF 3.3 g/dL
== END 2022-09-08 13:03 | disposition home or self-care (01) ==
LOC: SUR 10:19
PROVIDERS: PCP Family Medicine; Visit Provider Surgery
PROC: 0W9G3ZZ Drainage of Peritoneal Cavity, Percutaneous Approach (ICD-10-PCS; CPT 49082; principal; 2022-09-08 11:00)
DX: K70.31 Alcoholic cirrhosis of liver with ascites (principal)
CPT/HCPCS: 49082; 82042; 96365; 84157; 89051

== ENCOUNTER 2022-09-09 19:06 | Inpatient (IN) | payer MEDICAID, SELFPAY ==
[2022-09-09 19:21] VITALS: BP 128/69; PULSE 68; RESP 26; TEMP 36.4; O2SAT 100
--- NOTE | 2022-09-09 19:45 | DI.CT_ITS ---
Exam(s) CT ABDOMEN PELVIS W EXAM: CT ABDOMEN PELVIS W CLINICAL HISTORY: Abd pain/ Incarcerated hernia TECHNIQUE: Imaging Protocol: Axial computed tomography images with coronal and sagittal reformatted images were created and reviewed CONTRAST MATERIAL: Intravenous: Omnipaque 350 Contrast volume:100 mL Oral: No COMPARISON: No exams were available for comparison FINDINGS: ABDOMEN: Lung Bases: Normal where visualized. Liver: The liver has a lobulated contour with an enlarged caudate and left lobe. The findings are mo st suggestive of hepatic cirrhosis. There is a 9 mm cyst in the right lobe of the liver. Portal, Superior Mesenteric, and Splenic Veins: Unremarkable. Gallbladder and Biliary Tract: No radiodense calculus or dilation. Pancreas: Normal density, no abnormal calcifications or inflammatory process. Spleen: Normal. Adrenals: No masses seen. Kidneys: Normal size, contour and axis. No radiodense stones or obstructive uropathy. No masses seen. Abdominal Aorta: Abdominal portion non-dilated. There is mild atherosclerosis. Bowel: There is a midline anterior abdominal wall hernia containing a loop of small bowel. The bowel proximally is dilated. The distal small bowel is of normal caliber as is the colon. The findings a re suspicious for bowel obstruction related to the hernia. No evidence of appendicitis. Peritoneal Cavity: There is a moderate amount of abdominal and pelvic ascites present. No free air. Lymph Nodes: Within normal limits. Bones: Within normal limits for the patient's age. Soft Tissues: There is fluid interspersed between the muscles of the left lateral abdominal wall. Th is raises a question of a lateral anterior abdominal wall defect such as a hernia. PELVIS: Bladder: Symmetric distention, no gross wall thickening. Reproductive Organs: Unremarkable as visualized. Lymph Nodes: Within normal limits. Bones: Within normal limits for the patient's age. IMPRESSION: 1. Findings suggestive of a incarcerated small bowel containing periumbilical hernia with proximal sm all bowel obstruction. 2. Findings of hepatic cirrhosis with a moderate amount of abdominal pelvic ascites. 3. Fluid interspersed between the muscles of the left lateral abdominal wall raising the question of an abdominal wall defect such as a hernia. RADIATION DOSE DELIVERED: 794.75mGy.cm Total DLP DATA REPOSITORY: All CT scans at this facility are submitted to the National Radiology Data Registry (NRDR) Dose Index Registry (DIR) with the [employer] (ACR). RADIATION OPTIMIZATION: All CT scans at this facility use at least one of these dose optimization te chniques: automated exposure control; mA and/or kV adjustment per patient size (includes targeted exa ms where dose is matched to clinical indication); or iterative reconstruction.
[2022-09-09 20:03] LABS: Abs Immature Grans 0.04 10^3/uL (0.0-0.06); Absolute Basophil Count 0.05 10^3/uL (0.0-0.2); Absolute Eosinophil Count 0.06 10^3/uL (0.0-0.7); Absolute Lymphocyte Count 2.66 10^3/uL (1.2-3.4); Absolute Monocyte Count 0.65 10^3/uL (0.1-0.8); Absolute Neutrophil Count 7.06 10^3/uL (1.2-6.7); Basophils % 0.5; Eosinophils % 0.6; HCT 44.9 % (40.0-50.0); Immature Grans % 0.4; Lymphocytes % 25.3; MCH 30.9 pg (27.0-33.0); MCHC 33.4 % (32.0-36.0); MCV 93 fL (80-95); Monocytes % 6.2; Platelet Count 230 10^3/uL (130-400); RBC 4.85 10^6/uL (4.36-5.78); RDW-SD 44.3 fL; WBC 10.52 10^3/uL (4.4-10.8)
[2022-09-09 20:09] LABS: Lactate 3.7 mmol/L (0.9-1.7)
[2022-09-09] MEDS: HYDROmorphone 2 MG/ML SYR 0.5 MG IVP (20:09)
[2022-09-09] MEDS: Ondansetron 4 MG/2 ML VIAL IVP (20:10)
[2022-09-09 20:32] LABS: ALT 20 U/L (16-63); AST 27 U/L (15-37); Albumin 3.7 g/dL (3.4-5.0); Alkaline Phosphatase 109 U/L (46-116); Anion Gap 10.8 mmol/L (3-11); BUN 13 mg/dL (7-18); Bilirubin, Total 0.8 mg/dL (0.2-1.0); CO2 27.2 mmol/L (21.0-32.0); Calcium 9.4 mg/dL (8.5-10.1); Chloride 98 mmol/L (98-107); Estimated GFR 90.56 (mL/min/1.73m2); Glucose 134 mg/dL (74-106); Lipase 174 U/L (73-393); Magnesium 1.7 mg/dL (1.8-2.4); Potassium 3.7 mmol/L (3.5-5.1); Sodium 136 mmol/L (136-145); Total Protein 8.5 g/dL (6.4-8.2)
[2022-09-09] MEDS: Omnipaque 350 MG/ML 100 ML BTL IJ (20:33)
[2022-09-09] MEDS: Normal Saline - Diluent 50 ML VIAL IV (20:34)
--- NOTE | 2022-09-09 20:39 | DI.VRAD_ITS ---
Addendum created by Scott Condon MD on 09/09/2022 8:40:35 PM EST: THIS REPORT CONTAINS FINDINGS THAT MAY BE CRITICAL TO PATIENT CARE. The findings were verbally communicated via telephone conference with MATILDE CHESTER at 8:40 PM EST on 09/09/2022. The findings were acknowledged and understood. Initial report created on 09/09/2022 8:39:00 PM EST: PROCEDURE INFORMATION: Exam: CT Abdomen And Pelvis With Contrast Exam date and time: 09/09/2022 8:25 PM Age: 52 years old Clinical indication: Other: Abd pain, incarcerated hernia TECHNIQUE: Imaging protocol: Computed tomography of the abdomen and pelvis with contrast. Contrast material: 350; Contrast volume: 100 ml; Contrast route: INTRAVENOUS (IV); COMPARISON: No relevant prior studies available. FINDINGS: Lung bases are grossly clear Cirrhosis and fatty infiltration of the liver. No definite hepatic mass. Simple cyst in the superior right lobe of the liver Main portal vein is patent. Moderate ascites No hydroureteronephrosis. No adrenal mass. The pancreas is unremarkable. Gallbladder is partially contracted without calcified stones. A periumbilical small bowel containing hernia with mild dilatation. There is narrowing of the bowel loops at the hernia orifice and proximal left-sided abdominal small bowel dilatation. There is no free air. The bladder is partially decompressed No concerning osseous abnormality. No aortic aneurysm or retroperitoneal adenopathy IMPRESSION: Findings compatible with the given clinical history of incarcerated periumbilical small bowel containing hernia. Developing partial small bowel obstruction suspected Cirrhosis and moderate to large ascites Dictated and Authenticated by: Scott Condon MD. Ordering:MANOLO Blackburn MD
[2022-09-09] MEDS: diazePAM 10 MG/2 ML SYR 5 MG IVP (20:57)
[2022-09-09 21:29] LABS: Source Nasal/Nares
--- NOTE | 2022-09-09 21:40 | ANES.PREOP_ITS ---
General Info Date of Service Date Performed: 09/09/22 Height: 5 ft 9 in Weight: 72.575 kg Body Mass Index (BMI): 23.6 Meds Allergies and Home Medications Allergies Allergy/AdvReac Type Severity Reaction Status Date / Time COVID-19 (SARS-CoV-2) Allergy Intermediate Skin Rash Verified 09/08/22 10:40 vaccine, alirio chlordiazepoxide Allergy Unknown Verified 09/08/22 10:40 levofloxacin Allergy Unknown Hives Verified 09/08/22 10:40 naltrexone AdvReac Intermediate abdominal Verified 09/08/22 10:40 pain-Pt is not sure Home Medication Medication Instructions Recorded amitriptyline 10 mg tablet 10 mg PO QHS 03/31/22 food supplemt, lactose-reduced 125 ml PO DAILY PRN 03/31/22 (Ensure Active High Protein oral liquid) furosemide 20 mg tablet (Lasix) 20 mg PO DAILY 03/31/22 hydroxyzine HCl 25 mg tablet 25 mg PO TID PRN 03/31/22 magnesium oxide 400 mg PO DAILY 03/31/22 omega 0-niq-too-fish oil 60 mg-90 1 cap PO DAILY 03/31/22 mg-500 mg capsule (Fish Oil) omeprazole 20 mg capsule,delayed 20 mg PO DAILY 03/31/22 release polyethylene glycol 3350 17 17 g PO DAILY PRN 03/31/22 gram/dose oral powder (Miralax) spironolactone 100 mg tablet 100 mg PO DAILY 03/31/22 zolpidem 5 mg tablet (Ambien) 5 mg PO QHS PRN #90 tabs 07/06/22 dandelion root 500 mg capsule 500 mg PO DAILY 09/08/22 folic acid 1 mg tablet 1 tab PO DAILY 09/08/22 milk thistle 200 mg capsule 200 mg PO DAILY 09/08/22 potassium chloride 20 mEq 1 tab PO QWEEK 09/08/22 tablet,extended release(part/cryst) tramadol 100 mg tablet 100 mg PO BID PRN pain #20 tabs 09/08/22 zinc 50 mg tablet 50 mg PO DAILY 09/08/22 Current Visit Medications: Current Medications Generic Name Dose Route Start Last Admin Trade Name Freq PRN Reason Stop Dose Admin Sodium Chloride 500 mls @ 0 mls/hr 09/09/22 19:52 Saline 500ml Bag IV PRN PRN As Directed IV Miscellaneous Supplies 1 each 09/09/22 20:00 Iv Access IV DIRECTED SHANIA Iohexol 100 ml 09/09/22 20:45 09/09/22 20:33 Omnipaque 350 Mg/Ml 100 Ml Btl IJ 10/09/22 23:59 100 ml DIRECTED SHANIA Administration Sodium Chloride 0 ml 09/09/22 19:52 Normal Saline Flush 10 Ml Syr IVP PRN PRN Sodium Chloride 50 ml 09/09/22 20:45 09/09/22 20:34 Normal Saline - Diluent 50 Ml Vial IV 50 ml .FOR DI USE SHANIA Administration PFSH Active Problems Active Problems: Problem Status Onset Code Alcoholism F10.20 Elevated liver enzymes R74.8 Hypokalemia E87.6 Hyponatremia E87.1 Liver mass R16.0 Tobacco user Z72.0 Ascites due to alcoholic cirrhosis K70.31 Tense ascites R18.8 Medical History Medical History ADHD Anxiety Deficiency of folic acid History of abdominal paracentesis Hyperlipidemia Impaired fasting glucose Leukocytosis Mixed anxiety and depressive disorder Subclinical hyperthyroidism Tobacco Smoking/Tobacco Use Status: Current every day Tobacco Type: cigarettes Smoking cigarettes per day: 10 Years smoked: 35 Alcohol Alcohol Intake: former Substance Use Substance use: Occasionally Substance use type: marijuana Details: Bowl w/friends on occassion Vital Signs and Lab Results Vital Signs Most Recent Vital Signs in EMR: Most Recent Vital Signs Temp Pulse Resp BP Pulse Ox 36.4 C L 68 26 H 128/69 100 09/09/22 19:21 09/09/22 19:21 09/09/22 19:21 09/09/22 19:21 09/09/22 19:21 Lab Results Result Diagrams: 09/09/22 19:56 09/09/22 19:56 Blood Type / Crossmatch: No Data to Display Complete Blood Count: White Blood Count 10.52 10^3/uL (4.4-10.8) 09/09/22 19:56 Red Blood Count 4.85 10^6/uL (4.36-5.78) 09/09/22 19:56 Hemoglobin 15.0 g/dL (13.5-17.5) 09/09/22 19:56 Hematocrit 44.9 % (40.0-50.0) 09/09/22 19:56 Platelet Count 230 10^3/uL (130-400) 09/09/22 19:56 Venous Blood Lactate 3.7 mmol/L (0.9-1.7) H* 09/09/22 19:56 Complete Metabolic Panel: Sodium 136 mmol/L (136-145) 09/09/22 19:56 Potassium 3.7 mmol/L (3.5-5.1) 09/09/22 19:56 Chloride 98 mmol/L (98-107) 09/09/22 19:56 Carbon Dioxide 27.2 mmol/L (21.0-32.0) 09/09/22 19:56 BUN 13 mg/dL (7-18) 09/09/22 19:56 Creatinine 1.0 mg/dL (0.70-1.30) 09/09/22 19:56 Est GFR (CKD-EPI 2020) 90.56 (mL/min/1.73m2) 09/09/22 19:56 Magnesium 1.7 mg/dL (1.8-2.4) L 09/09/22 19:56 Calcium 9.4 mg/dL (8.5-10.1) 09/09/22 19:56 Albumin 3.7 g/dL (3.4-5.0) 09/09/22 19:56 Glucose 134 mg/dL (74-106) H 09/09/22 19:56 Liver Function Panel: Alanine Aminotransferase (ALT/SGPT) 20 U/L (16-63) 09/09/22 19: 56 Aspartate Amino Transf (AST/SGOT) 27 U/L (15-37) 09/09/22 19:56 Coagulation Panel: INR International Normalized Ratio Pending 09/09/22 21:2 0 Prothrombin Time Pending 09/09/22 21:20 Cardiac Panel: No Data to Display Arterial Blood Gas: No Data to Display Venous Blood Gas: No Data to Display Pancreas Panel: Lipase 174 U/L (73-393) 09/09/22 19:56 Thyroid Panel: No Data to Display Infectious Disease: Coronavirus (COVID-19)(PCR) Pending 09/09/22 21:25 Coronavirus 2019 Source Nasal/Nares 09/09/22 21:25 Blood Cultures: No Data to Display Toxicology Panel: No Data to Display Anesthesia Assessment and Plan Anesthesia History Personal History: No History of Anesthesia Complications Family History: No Family History of Anesthesia Complications Exercise Tolerance Exercise Tolerance: Metabolic Equivalents>4 Pertinent Negatives Pertinent Negatives: No Symptoms of GERD, No Major Cardiovascular Symptoms or Complaints and No Major Pulmonary Symptoms or Complaints Cardiac & Pulmonary Exam Cardiac Exam: Normal S1/S2 Heart Sounds Pulmonary Exam: Clear Bilateral Breath Sounds Implantable Cardiac Device Does patient have a Pacemaker or an ICD?: No Airway Exam Known Difficult Airway: No Mallampati Class: 1 Mouth Opening: Normal (> 3cm) Thyromental Distance: Greater than 3 cm Neck Range of Motion: Full ROM Neck Circumference: Normal Teeth Condition: Normal Dentition ASA Classification ASA Score: ASA 3 Emergency Case?: Yes NPO Status NPO Status: NPO Clears >2 hours, Solids >8 hours Anesthesia Plan Resuscitation Status: Full Code Anesthesia Technique: General Anesthesia Airway Planned: Endotracheal Tube Monitors Used: Standard Monitors
--- NOTE | 2022-09-09 21:41 | W.ED.GENAD ---
Discharge Plan Disposition Patient Disposition: Admit to [facility] Condition: Critical Discharge Details Clinical Impression: Strangulated umbilical hernia Admit Date/Time: 09/09/22 23:42 Admit Provider: Darron Osorio Attending Provider: Darron Osorio Primary Care Provider: FOUZIA GONZALEZ ED Provider: Alexey Muller Discharge Data Discharge Date/Time-TO BE ENTERED AT DEPARTURE: 09/09/22 22:34 Medical Decision Making Patient presenting to the emergency department for chief complaint of problems with his hernia. He states that approximately 2-1/2 to 3 hours prior to arrival he started having significant abdominal pain and discomfort. He states that he has had an ongoing hernia for a while and his clinical specialist medical device has had him hold off on repair due to potential complications. He typically can reduce his hernia but today it was on reducible and had worsening pain and discomfort. Patient states that he has had some constipation recently but did have a bowel movement this morning, no urinary complaints. Physical exam shows obvious umbilical hernia with ecchymosis and some edema surrounding the area. Patient does have some hypoactive bowel sounds and no other tenderness noted except for right around umbilical hernia. We will plan on checking labs including lactate and CT imaging. Patient did have paracentesis yesterday due to ascites secondary from cirrhosis. Reviewed labs and CBC is overall unremarkable with no significant leukocytosis and normal platelet count. VBG is elevated with lactate of 3.7, CMP is also unremarkable except for slightly elevated glucose of 134, magnesium is 1.7, bilirubin AST ALT and alk phos are all within normal limits, albumin is 3.7 and lipase is unremarkable. Pending CT imaging I did call and speak with surgeon due to obvious clinical suspicion of strangulated hernia. On-call surgeon Dr. Osorio recommended placing ice upon the site and giving Valium and attempting reduction. Reduction was attempted and unfortunately I was unable to reduce hernia. CT imaging came back and did show critical finding with strangulated hernia and secondary bowel obstructions due to the hernia. Called the surgeon back who came in and evaluated the patient for plan of care to go to the OR. Patient was admitted with this plan of care. Patient remained stable throughout the emergency department stay. HPI General Mode of arrival: EMS. Date/Time Provider Initiated Documentation: 09/09/22 19:52. Limitations to Documentation: no limitations. Information obtained by: patient and RN notes reviewed. History of Present Illness 52 year old M presents to the emergency department with the chief complaint of abd pain , described as severe, with intensity rated at 10. Quality is described as sharp, and is localized to the abdomen. Patient started experiencing this hour(s) (3) and it has been constant. No relieving factors improve symptom(s), No exacerbating factors reported . Patient notes nausea/vomiting. Patient did receive the following treatments prior to arrival, none Related Data Home Medications Medication Instructions Recorded Confirmed amitriptyline 10 mg tablet 10 mg PO QHS 03/31/22 09/09/22 food supplemt, lactose-reduced 125 ml PO DAILY PRN 03/31/22 09/09/22 (Ensure Active High Protein oral liquid) furosemide 20 mg tablet (Lasix) 20 mg PO DAILY 03/31/22 09/09/22 hydroxyzine HCl 25 mg tablet 25 mg PO TID PRN 03/31/22 09/09/22 magnesium oxide 400 mg PO DAILY 03/31/22 09/09/22 omega 5-hlw-ukm-fish oil 60 mg-90 1 cap PO DAILY 03/31/22 09/09/22 mg-500 mg capsule (Fish Oil) omeprazole 20 mg capsule,delayed 20 mg PO DAILY 03/31/22 09/09/22 release polyethylene glycol 3350 17 17 g PO DAILY PRN 03/31/22 09/09/22 gram/dose oral powder (Miralax) spironolactone 100 mg tablet 100 mg PO DAILY 03/31/22 09/09/22 zolpidem 5 mg tablet (Ambien) 5 mg PO QHS PRN #90 tabs 07/06/22 09/09/22 dandelion root 500 mg capsule 500 mg PO DAILY 09/08/22 09/09/22 folic acid 1 mg tablet 1 tab PO DAILY 09/08/22 09/09/22 milk thistle 200 mg capsule 200 mg PO DAILY 09/08/22 09/09/22 potassium chloride 20 mEq 1 tab PO QWEEK 09/08/22 09/09/22 tablet,extended release(part/cryst) tramadol 100 mg tablet 100 mg PO BID PRN pain #20 tabs 09/08/22 09/09/22 zinc 50 mg tablet 50 mg PO DAILY 09/08/22 09/09/22 amoxicillin 875 mg-potassium 1 tab PO BID #14 tabs 09/11/22 clavulanate 125 mg tablet Previous Rx's Medication Instructions Recorded zolpidem 5 mg tablet (Ambien) 5 mg PO QHS PRN #90 tabs 07/06/22 tramadol 100 mg tablet 100 mg PO BID PRN pain #20 tabs 09/08/22 amoxicillin 875 mg-potassium 1 tab PO BID #14 tabs 09/11/22 clavulanate 125 mg tablet Allergies Allergy/AdvReac Type Severity Reaction Status Date / Time COVID-19 (SARS-CoV-2) Allergy Intermediate Skin Rash Verified 09/08/22 10:40 vaccine, alirio chlordiazepoxide Allergy Unknown Verified 09/08/22 10:40 levofloxacin Allergy Unknown Hives Verified 09/08/22 10:40 naltrexone AdvReac Intermediate abdominal Verified 09/08/22 10:40 pain-Pt is not sure General Stated Complaint: Abd Prob RYLEY: 3 Review of Systems Constitutional Constitutional: Denies chills, Denies fever(s) and Reports poor appetite Cardiovascular Cardiovascular: Denies chest pain and Denies dyspnea Respiratory Respiratory: Denies cough and Denies dyspnea Gastrointestinal Gastrointestinal: Reports as per HPI, Reports abdominal pain, Denies melena, Denies change in bowel habits, Reports constipation, Denies diarrhea, Reports nausea and Denies vomiting Genitourinary Genitourinary: Denies hematuria, Denies difficulty urinating, Denies urinary hesitancy, Denies urinary incontinence and Denies urinary urgency Integumentary/Breasts Skin/Breast: Denies rash PFSH All Active Problems (Updated 09/13/22 @ 09:15 by Alexey Muller NP) Strangulated umbilical hernia (Acute) Cirrhosis of liver with ascites (Acute) Alcoholism (Acute) Elevated liver enzymes (Acute) Hypokalemia (Acute) Hyponatremia (Acute) Liver mass (Acute) Tobacco user (Acute) Ascites due to alcoholic cirrhosis (Acute) Tense ascites (Acute) Medical History ADHD Anxiety Deficiency of folic acid History of abdominal paracentesis Hyperlipidemia Impaired fasting glucose Leukocytosis Mixed anxiety and depressive disorder Subclinical hyperthyroidism Social History Smoking/Tobacco Use Status: Current every day Tobacco Type: cigarettes Years smoked: 35 Smoking risk assessment performed?: Yes Alcohol Intake: former Drug use: Occasionally Substance use type: marijuana Details: Bowl w/friends on occassion Do you feel safe at home: Yes Do you feel safe in your relationship?: Yes Exam Const General: cooperative Orientation: alert, awake and oriented x3 Resp Effort & Inspection: normal respiratory effort and able to speak in complete sentences Auscultation: clear to auscultation bilaterally Cardio Rate: regular rate Rhythm: regular rhythm Heart Sounds: S1 normal and S2 normal GI Inspection: abdominal wall ecchymosis Palpation: soft, not firm, no guarding, hernia umbilical (With ecchymosis), no pulsatile masses, not rigid, no splenomegaly and tender periumbilically Auscultation: normal bowel sounds Back/Spine/Pelvis Back: no CVA tenderness Neuro General: patient alert, patient awake, patient oriented x3, gait normal and moves all extremities Course Vital Signs Vital signs: Vital Signs Temperature 36.4 C L 09/09/22 19:21 Pulse 68 09/09/22 19:21 Respiratory Rate 26 H 09/09/22 19:21 Blood Pressure 128/69 09/09/22 19:21 Pulse Oximetry 100 09/09/22 19:21 Temperature 36.4 C L 09/09/22 19:21 Temperature Source Temporal Artery Scan 09/09/22 19:21 Pulse 68 09/09/22 19:21 Respiratory Rate 26 H 09/09/22 19:21 Respiratory Effort Non-Labored 09/09/22 19:26 Blood Pressure 128/69 09/09/22 19:21 Blood Pressure Position Sitting 09/09/22 19:21 Pulse Oximetry 100 09/09/22 19:21 Oxygen Delivery Method Room Air 09/09/22 19:21 Oxygen Flow Rate 0 09/09/22 19:21 Pain Level 10 09/09/22 19:26 Lab/Test Results Lab/Test Results: Laboratory Tests Range/Units 09/09/22 09/09/22 09/09/22 19:56 19:56 19:56 WBC (4.4-10.8) 10^3/uL 10.52 RBC (4.36-5.78) 10^6/uL 4.85 Hgb (13.5-17.5) g/dL 15.0 Hct (40.0-50.0) % 44.9 MCV (80-95) fL 93 MCH (27.0-33.0) pg 30.9 MCHC (32.0-36.0) % 33.4 RDW (11.8-14.1) % 13.0 Plt Count (130-400) 10^3/uL 230 MPV (8.0-11.0) fL 9.0 Immature Gran % 0.4 Neutrophils % 67.0 Lymphocytes % 25.3 Monocytes % 6.2 Eosinophils % 0.6 Basophils % 0.5 Nucleated RBC % (0.0-0.3) % 0.0 Absolute Neutrophils (1.2-6.7) 10^3/uL 7.06 H Absolute Lymphocytes (1.2-3.4) 10^3/uL 2.66 Absolute Monocytes (0.1-0.8) 10^3/uL 0.65 Absolute Eosinophils (0.0-0.7) 10^3/uL 0.06 Absolute Basophils (0.0-0.2) 10^3/uL 0.05 VBG Lactate (0.9-1.7) mmol/L 3.7 H* Sodium (136-145) mmol/L 136 Potassium (3.5-5.1) mmol/L 3.7 Chloride (98-107) mmol/L 98 Carbon Dioxide (21.0-32.0) mmol/L 27.2 Anion Gap (3-11) mmol/L 10.8 BUN (7-18) mg/dL 13 Creatinine (0.70-1.30) mg/dL 1.0 Est GFR (CKD-EPI 2020) (mL/min/1.73m2) 90.56 Glucose (74-106) mg/dL 134 H Calcium (8.5-10.1) mg/dL 9.4 Magnesium (1.8-2.4) mg/dL 1.7 L Total Bilirubin (0.2-1.0) mg/dL 0.8 AST (15-37) U/L 27 ALT (16-63) U/L 20 Alkaline Phosphatase (46-116) U/L 109 Total Protein (6.4-8.2) g/dL 8.5 H Albumin (3.4-5.0) g/dL 3.7 Lipase (73-393) U/L 174 COVID-19 Source Range/Units 12/14/22 21:25 WBC (4.4-10.8) 10^3/uL RBC (4.36-5.78) 10^6/uL Hgb (13.5-17.5) g/dL Hct (40.0-50.0) % MCV (80-95) fL MCH (27.0-33.0) pg MCHC (32.0-36.0) % RDW (11.8-14.1) % Plt Count (130-400) 10^3/uL MPV (8.0-11.0) fL Immature Gran % Neutrophils % Lymphocytes % Monocytes % Eosinophils % Basophils % Nucleated RBC % (0.0-0.3) % Absolute Neutrophils (1.2-6.7) 10^3/uL Absolute Lymphocytes (1.2-3.4) 10^3/uL Absolute Monocytes (0.1-0.8) 10^3/uL Absolute Eosinophils (0.0-0.7) 10^3/uL Absolute Basophils (0.0-0.2) 10^3/uL VBG Lactate (0.9-1.7) mmol/L Sodium (136-145) mmol/L Potassium (3.5-5.1) mmol/L Chloride (98-107) mmol/L Carbon Dioxide (21.0-32.0) mmol/L Anion Gap (3-11) mmol/L BUN (7-18) mg/dL Creatinine (0.70-1.30) mg/dL Est GFR (CKD-EPI 2020) (mL/min/1.73m2) Glucose (74-106) mg/dL Calcium (8.5-10.1) mg/dL Magnesium (1.8-2.4) mg/dL Total Bilirubin (0.2-1.0) mg/dL AST (15-37) U/L ALT (16-63) U/L Alkaline Phosphatase (46-116) U/L Total Protein (6.4-8.2) g/dL Albumin (3.4-5.0) g/dL Lipase (73-393) U/L COVID-19 Source Nasal/Nares
[2022-09-09 21:42] VITALS: BMI 23.6
[2022-09-09 21:47] LABS: INR 1.1 (0.9-1.1); Prothrombin Time 11.2 sec (9.3-11.0)
[2022-09-09 22:00] LABS: COVID-19 PCR Negative (Negative)
[2022-09-09] MEDS: HYDROmorphone 2 MG/ML SYR 1 MG IVP (22:02)
[2022-09-09] MEDS: PIPERACILLIN/TAZO 4.5 GM in Normal Saline 100 ML IVPB (22:30)
--- NOTE | 2022-09-09 22:30 | HPE_ITS ---
Date of service: 09/09/22 Time of Service: 21:45 Assessment and Plan Assessment and plan (1) Strangulated umbilical hernia: Status: Acute Assessment and plan: 52-year-old man with cirrhosis and ascites of the strangulated umbilical hernia. This is a surgical emergency. He is hemodynamically stable and does not have any peritoneal signs however bowel with hernia may not be viable. I had a very detailed and explicit discussion with the patient and his girlfriend at the bedside: His chronic medical condition unfortunately sets him up for extremely high perioperative mortality for this specific, emergency clinical/surgical situation (reported as high as 60 - 80% in patients with combined cirrhosis and ascites) as well as equally high morbidity which includes complications such as ascites f istula, wound?breakdown, infection, hernia recurrence to name a few. An ostomy appliance could be needed for management of an ascites fistula as 1 example. Surgical mesh is contraindicated in this scenario due to an unacceptably high risk/rate of infection. Patient understands the emergency of the situation, the indications for surgery as well as the risks and potential benefits of surgical repair. He also understands, clearly, and is able to verbalize the potential, very high?risk complications which might take place during the postoperative course. Overall plan: Laparoscopic primary ventral hernia repair, small bowel resection, possible open procedure (2) Ascites due to alcoholic cirrhosis: Status: Acute Assessment and plan: Judicious fluid management and aggressive diuretic therapy will play a significant role in the postoperative management (3) Cirrhosis of liver with ascites: Status: Acute Assessment and plan: Chronic condition which requires maintenance medical management History of Present Illness Narrative: The patient is a 52-year-old man who has end?stage liver disease/cirrhosis secondary to chronic alcoholism (he has been dry for a long time now) and has had ascites which has required paracentesis historically. His liver physicians are in [place] and most recently he reports that his ascites has been under control with diuretic therapy and he only had to get tapped once in the last 2 months. He denies he is currently on a transplant list and reports that has not really been discussed as of yet. Yesterday he came in and had 6 L of fluid removed by paracentesis. That was uneventful however earlier today he started having sharp and severe abdominal pain right [facility] where he has a chronic umbilical hernia. He reports that he has had the hernia for a number of months and has been trying to get it fixed for a number of months as well. For various reasons he has not yet been able to get it repaired electively. Pain has now been there for about 3 or 4 hours he reports, severe and constant. Also the hernia is now hard when previously it was soft. A lot of discoloration around the bellybutton as well but he reports that it has been like that for at least a few weeks if not a month or so. There has been some associated nausea as well as some mild amounts of vomiting. Because of the pain and the acuity of the issue he presented to the emergency department. Efforts by the ER to reduce the hernia were unsuccessful. His only abdominal surgical history is that of repeated paracentesis procedures and inguinal hernia repairs as a child. PFSH All Active Problems (Updated 09/09/22 @ 22:39 by Darron Osorio MD) Cirrhosis of liver with ascites (Acute) Strangulated umbilical hernia (Acute) Alcoholism (Acute) Elevated liver enzymes (Acute) Hypokalemia (Acute) Hyponatremia (Acute) Liver mass (Acute) Tobacco user (Acute) Ascites due to alcoholic cirrhosis (Acute) Tense ascites (Acute) Medical History ADHD Anxiety Deficiency of folic acid History of abdominal paracentesis Hyperlipidemia Impaired fasting glucose Leukocytosis Mixed anxiety and depressive disorder Subclinical hyperthyroidism Social History Smoking/Tobacco Use Status: Current every day Tobacco Type: cigarettes Years smoked: 35 Smoking risk assessment performed?: Yes Alcohol Intake: former Drug use: Occasionally Substance use type: marijuana Details: Bowl w/friends on occassion Do you feel safe at home: Yes Do you feel safe in your relationship?: Yes Meds Allergies and Home Medications Allergies Allergy/AdvReac Type Severity Reaction Status Date / Time COVID-19 (SARS-CoV-2) Allergy Intermediate Skin Rash Verified 09/08/22 10:40 vaccine, alirio chlordiazepoxide Allergy Unknown Verified 09/08/22 10:40 levofloxacin Allergy Unknown Hives Verified 09/08/22 10:40 naltrexone AdvReac Intermediate abdominal Verified 09/08/22 10:40 pain-Pt is not sure Home Medications Medication Instructions Recorded Confirmed Type amitriptyline 10 mg tablet 10 mg PO QHS 03/31/22 09/09/22 History food supplemt, lactose-reduced 125 ml PO DAILY PRN 03/31/22 09/09/22 History (Ensure Active High Protein oral liquid) furosemide 20 mg tablet (Lasix) 20 mg PO DAILY 03/31/22 09/09/22 History hydroxyzine HCl 25 mg tablet 25 mg PO TID PRN 03/31/22 09/09/22 History magnesium oxide 400 mg PO DAILY 03/31/22 09/09/22 History omega 8-hix-quq-fish oil 60 mg-90 1 cap PO DAILY 03/31/22 09/09/22 History mg-500 mg capsule (Fish Oil) omeprazole 20 mg capsule,delayed 20 mg PO DAILY 03/31/22 09/09/22 History release polyethylene glycol 3350 17 17 g PO DAILY PRN 03/31/22 09/09/22 History gram/dose oral powder (Miralax) spironolactone 100 mg tablet 100 mg PO DAILY 03/31/22 09/09/22 History zolpidem 5 mg tablet (Ambien) 5 mg PO QHS PRN #90 tabs 07/06/22 09/09/22 Rx dandelion root 500 mg capsule 500 mg PO DAILY 09/08/22 09/09/22 History folic acid 1 mg tablet 1 tab PO DAILY 09/08/22 09/09/22 History milk thistle 200 mg capsule 200 mg PO DAILY 09/08/22 09/09/22 History potassium chloride 20 mEq 1 tab PO QWEEK 09/08/22 09/09/22 History tablet,extended release(part/cryst) tramadol 100 mg tablet 100 mg PO BID PRN pain #20 tabs 09/08/22 09/09/22 Rx zinc 50 mg tablet 50 mg PO DAILY 09/08/22 09/09/22 History Exam Narrative Exam Narrative: General: Nontoxic, mildly uncomfortable but overall interactive Neuro: Alert and oriented x3 Psych: Appropriate mood and affect, good insight and understanding into his condition Abdomen: Soft, no significant distention, no significant tenderness of the abdominal quadrants with the exception of around the umbilicus where a palpable hernia is present. The skin is completely discolored over top of it and the hernia is firm and tender. It is not reducible. Results Labs Result diagrams: 09/09/22 19:56 09/09/22 19:56 Labs: Laboratory Results - last 24 hr 09/09/22 09/09/22 09/09/22 19:56 19:56 19:56 WBC 10.52 RBC 4.85 Hgb 15.0 Hct 44.9 MCV 93 MCH 30.9 MCHC 33.4 RDW 13.0 Plt Count 230 MPV 9.0 Immature Gran % 0.4 Neutrophils % 67.0 Lymphocytes % 25.3 Monocytes % 6.2 Eosinophils % 0.6 Basophils % 0.5 Nucleated RBC % 0.0 Absolute Neutrophils 7.06 H Absolute Lymphocytes 2.66 Absolute Monocytes 0.65 Absolute Eosinophils 0.06 Absolute Basophils 0.05 PT INR VBG Lactate 3.7 H* Sodium 136 Potassium 3.7 Chloride 98 Carbon Dioxide 27.2 Anion Gap 10.8 BUN 13 Creatinine 1.0 Est GFR (CKD-EPI 2020) 90.56 Glucose 134 H Calcium 9.4 Magnesium 1.7 L Total Bilirubin 0.8 AST 27 ALT 20 Alkaline Phosphatase 109 Total Protein 8.5 H Albumin 3.7 Lipase 174 COVID-19 Source SARS-CoV-2 (PCR) 09/09/22 09/09/22 21:20 21:25 WBC RBC Hgb Hct MCV MCH MCHC RDW Plt Count MPV Immature Gran % Neutrophils % Lymphocytes % Monocytes % Eosinophils % Basophils % Nucleated RBC % Absolute Neutrophils Absolute Lymphocytes Absolute Monocytes Absolute Eosinophils Absolute Basophils PT 11.2 H INR 1.1 VBG Lactate Sodium Potassium Chloride Carbon Dioxide Anion Gap BUN Creatinine Est GFR (CKD-EPI 2020) Glucose Calcium Magnesium Total Bilirubin AST ALT Alkaline Phosphatase Total Protein Albumin Lipase COVID-19 Source Nasal/Nares SARS-CoV-2 (PCR) Negative Last Vital Signs Temp 97.5 F L 09/09/22 19:21 Pulse 68 09/09/22 19:21 Resp 26 H 09/09/22 19:21 BP 128/69 09/09/22 19:21 Pulse Ox 100 09/09/22 19:21
[2022-09-09] MEDS: Lactated Ringers 1,000 ML 30 ML IV (22:38)
[2022-09-09 22:39] VITALS: BP 134/86; PULSE 110; RESP 22; TEMP 36.6; O2SAT 100
[2022-09-09] MEDS: Bupivacaine 0.25% Pres-Free 30 ML VIAL (22:57)
[2022-09-09 23:50] VITALS: BP 96/60; PULSE 99; RESP 12; TEMP 36.7; O2SAT 98
--- NOTE | 2022-09-09 23:54 | W.PM.OP ---
Date of service: 09/09/22 Time of Service: 23:30 Operative Note Operative Note Refer to Anesthesia Record Procedure Description: Procedures performed: 1. Diagnostic laparoscopy 2. Primary umbilical herniorrhaphy Preoperative diagnosis: Strangulated umbilical hernia, cirrhosis, ascites Postop diagnosis: Same Surgeon: Deanna Osorio Anesthesia: General Anesthesia provider: Talha Indication for procedure: 52-year-old man with end-stage cirrhosis and ascites and a chronic umbilical hernia presented with an acute strangulation and developing SBO. Efforts to reduce hernia in ER failed. He was counseled about the high?morbidity, high mortality and high?risk nature of his acute on chronic conditions for both perioperative as well as postoperative complications. Findings: After anesthesia, hernia was able to be reduced. Small bowel very bruised but viable. Primary suture herniorrhaphy performed. No mesh. Estimated blood loss: Minimal Complications: None Drains: None Procedure details: The patient gave written consent.? He was in agreement with the risks, indications and benefits of the procedure.?He was taken to the operating room and laid supine with arms outstretched.? Anesthesia was administered which he tolerated very well.? Antibiotics have been given.? We performed a timeout and when we were all in agreement I began the case. With the patient anesthetized, I gently but deliberately was able to reduce the hernia extracorporeally. The defect in the fascia was palpable and quite small. We prepped and draped the abdomen in sterile fashion.? A small stab incision was made in the redundant skin of the umbilicus. Noted to easily guide a 5 mm trocar bluntly incision and into the defect gaining access into the peritoneal cavity. Insufflation was tolerated well. 5 mm camera I performed diagnostic laparoscopy. A visibly cirrhotic liver was noted. Significant ascites is present in both bilateral upper quadrants as well as in the pelvis. Dilated loops of small bowel which had been within the defect were easily and readily identified because of how beat up they were in appearance. Nonetheless, they appeared viable and were not necrotic. I removed the 5 mm port and thru the incision grasped the inferior and superior fascial edges of the defect. I used electrocautery in a complete circumference along the fascial edges of the defect to completely disrupt any continuity of the peritoneum thus isolating the hernia sac away from the peritoneum proper. I approximated these fresh fascial edges to each other without any tension in a horizontal fashion using 3 interrupted sutures. Skin was closed running subcuticular with Monocryl and an unusually dense amount of Dermabond skin glue was used to seal the skin over top in addition to being a sterile barrier dressing. In this fashion I hope to minimize the risk of developing an ascitic fluid fistula. The patient tolerated the procedure well.? He was taken to the PACU in hemodynamically stable condition.
[2022-09-09 23:55] VITALS: BP 101/61; PULSE 98; RESP 11; TEMP 36.7; O2SAT 98
--- NOTE | 2022-09-09 23:59 | W.ANESPOSTOP ---
Postoperative Evaluation Date, Time and Location Date Performed: 09/09/22 Time Performed: 23:59 Patient Location: PACU Vital Signs Most Recent Imported Vital Signs: Most Recent Vital Signs Temp Pulse Resp BP Pulse Ox 36.7 C 98 H 11 L 101/61 98 09/09/22 23:55 09/09/22 23:55 09/09/22 23:55 09/09/22 23:55 09/09/22 23:55 Pain Score Most Recent Pain Score: Most Recent Pain Score Pain Level 0 09/09/22 23:55 Assessment Mental Status: Awake (Alert & Oriented to Patient Baseline) Airway and Respiratory Function: Patent airway with normal (patient baseline) respiratory exam Cardiovascular Function: Hemodynamically Stable Hydration Status: Adequately Hydrated Nausea & Vomiting: No Nausea or Vomiting Pain: Pt. Denies Any Pain Peripheral Nerve Block: Patient did not receive a nerve block
[2022-09-10] VITALS (11 sets, daily range): BP systolic 96–119; BP diastolic 56–76; PULSE 77–95; RESP 11–19; TEMP 35.7–36.8; O2SAT 95–99
[2022-09-10] MEDS: Acetaminophen 500 MG TAB PO ×3 (00:35→16:38)
[2022-09-10] MEDS: Normal Saline 500 ML 30 ML IV (05:18)
[2022-09-10] MEDS: Normal Saline Flush 10 ML SYR IVP (05:18)
[2022-09-10] MEDS: PIPERACILLIN/TAZO 3.375 GM in Normal Saline 50 ML IVPB ×3 (05:18→16:39)
[2022-09-10 07:02] LABS: Abs Immature Grans 0.04 10^3/uL (0.0-0.06); Absolute Basophil Count 0.01 10^3/uL (0.0-0.2); Absolute Lymphocyte Count 1.33 10^3/uL (1.2-3.4); Absolute Monocyte Count 0.21 10^3/uL (0.1-0.8); Absolute Neutrophil Count 7.95 10^3/uL (1.2-6.7); Basophils % 0.1; HCT 41.6 % (40.0-50.0); HGB 14.1 g/dL (13.5-17.5); Immature Grans % 0.4; Lymphocytes % 13.9; MCH 31.1 pg (27.0-33.0); MCHC 33.9 % (32.0-36.0); MCV 92 fL (80-95); MPV 9.2 fL (8.0-11.0); Monocytes % 2.2; Neutrophils % 83.4; Platelet Count 207 10^3/uL (130-400); RBC 4.53 10^6/uL (4.36-5.78); RDW 12.8 % (11.8-14.1); RDW-SD 43.2 fL; WBC 9.54 10^3/uL (4.4-10.8)
[2022-09-10 07:28] LABS: ALT 18 U/L (16-63); AST 25 U/L (15-37); Albumin 2.9 g/dL (3.4-5.0); Alkaline Phosphatase 92 U/L (46-116); Anion Gap 6.6 mmol/L (3-11); BUN 14 mg/dL (7-18); Bilirubin, Total 0.7 mg/dL (0.2-1.0); CO2 25.4 mmol/L (21.0-32.0); Calcium 8.9 mg/dL (8.5-10.1); Chloride 101 mmol/L (98-107); Estimated GFR 90.56 (mL/min/1.73m2); Glucose 143 mg/dL (74-106); Potassium 4.4 mmol/L (3.5-5.1); Sodium 133 mmol/L (136-145); Total Protein 7.2 g/dL (6.4-8.2)
[2022-09-10] MEDS: Heparin 5,000 UNITS/ML VIAL 5000 UNITS SC ×2 (08:21→20:47)
[2022-09-10] MEDS: Spironolactone 50 MG TAB 100 MG PO (08:22)
[2022-09-10] MEDS: Furosemide 20 MG TAB PO (08:22)
[2022-09-10] MEDS: Omeprazole 20 MG CAPCR PO (08:22)
--- NOTE | 2022-09-10 11:24 | W.PM.PROGNOT ---
Date of Service Date of service: 09/10/22 Time of Service: 11:30 Assessment and Plan Assessment and plan (1) Strangulated umbilical hernia: Status: Acute Assessment and plan: 52-year-old man postop day 1 from primary umbilical hernia repair after presenting with an acute strangulation. There are no issues surgically however his chronic medical conditions, namely cirrhosis with ascites is going to be the mainstay of management difficulty/complexity. Hemodynamically stable and his lab work looks pretty good this morning. It is critical that his ascites remain minimized at all times in the next couple of months to promote the best healing environment for the hernia and avoid any stretch on it. Aggressive diuretic therapy is going to need to be judiciously managed and monitored to keep his ascites at bay during this timeframe. Hopefully the the copious layer of skin glue on the surgical wound helps prevent the formation of an ascites fistula. His abdominal exam is quite benign though it is too early to be optimistic that his ascites will not get infected from translocated bacteria of the intestinal tract that was beat up in the hernia. He has not passed gas and some degree of an ileus is probably present. Overall plan today: Stay on clear liquids Stay on IV antibiotics prophylactically from a prevention standpoint DVT prophylaxis No IV fluids, oral diuretics and other necessary home meds Possible discharge home tomorrow if still doing well in the AM. He needs to be set up with an outpatient PCP to manage his diuretics closely. Subjective Subjective Interval history since last seen: No complaints at the bedside. He has no pain. Overall he feels excellent. He is not nauseated. He has not passed any gas. He is voiding adequately and tolerating clear liquids. Exam Narrative Exam Narrative: General: Nontoxic, comfortable and interactive Neuro: Alert and oriented x3 Psych: Appropriate mood and affect, good insight and understanding into his condition Abdomen: Soft, nondistended and no tenderness anywhere. His incision is clean and dry, no evidence of ascites leaking, it is covered with Dermabond glue. Objective Last Vital Signs Temp 96.3 F L 09/10/22 05:19 Pulse 82 09/10/22 05:19 Resp 18 09/10/22 05:19 BP 96/56 L 09/10/22 05:19 Pulse Ox 95 09/10/22 05:19 Laboratory Results - last 24 hr 09/09/22 09/09/22 09/09/22 19:56 19:56 19:56 WBC 10.52 RBC 4.85 Hgb 15.0 Hct 44.9 MCV 93 MCH 30.9 MCHC 33.4 RDW 13.0 Plt Count 230 MPV 9.0 Immature Gran % 0.4 Neutrophils % 67.0 Lymphocytes % 25.3 Monocytes % 6.2 Eosinophils % 0.6 Basophils % 0.5 Nucleated RBC % 0.0 Absolute Neutrophils 7.06 H Absolute Lymphocytes 2.66 Absolute Monocytes 0.65 Absolute Eosinophils 0.06 Absolute Basophils 0.05 PT INR VBG Lactate 3.7 H* Sodium 136 Potassium 3.7 Chloride 98 Carbon Dioxide 27.2 Anion Gap 10.8 BUN 13 Creatinine 1.0 Est GFR (CKD-EPI 2020) 90.56 Glucose 134 H Calcium 9.4 Magnesium 1.7 L Total Bilirubin 0.8 AST 27 ALT 20 Alkaline Phosphatase 109 Total Protein 8.5 H Albumin 3.7 Lipase 174 COVID-19 Source SARS-CoV-2 (PCR) 09/09/22 09/09/22 09/10/22 21:20 21:25 06:20 WBC RBC Hgb Hct MCV MCH MCHC RDW Plt Count MPV Immature Gran % Neutrophils % Lymphocytes % Monocytes % Eosinophils % Basophils % Nucleated RBC % Absolute Neutrophils Absolute Lymphocytes Absolute Monocytes Absolute Eosinophils Absolute Basophils PT 11.2 H INR 1.1 VBG Lactate Sodium 133 L Potassium 4.4 Chloride 101 Carbon Dioxide 25.4 Anion Gap 6.6 BUN 14 Creatinine 1.0 Est GFR (CKD-EPI 2020) 90.56 Glucose 143 H Calcium 8.9 Magnesium Total Bilirubin 0.7 AST 25 ALT 18 Alkaline Phosphatase 92 Total Protein 7.2 Albumin 2.9 L Lipase COVID-19 Source Nasal/Nares SARS-CoV-2 (PCR) Negative 09/10/22 06:20 WBC 9.54 RBC 4.53 Hgb 14.1 Hct 41.6 MCV 92 MCH 31.1 MCHC 33.9 RDW 12.8 Plt Count 207 MPV 9.2 Immature Gran % 0.4 Neutrophils % 83.4 Lymphocytes % 13.9 Monocytes % 2.2 Eosinophils % 0.0 Basophils % 0.1 Nucleated RBC % 0.0 Absolute Neutrophils 7.95 H Absolute Lymphocytes 1.33 Absolute Monocytes 0.21 Absolute Eosinophils 0.00 Absolute Basophils 0.01 PT INR VBG Lactate Sodium Potassium Chloride Carbon Dioxide Anion Gap BUN Creatinine Est GFR (CKD-EPI 2020) Glucose Calcium Magnesium Total Bilirubin AST ALT Alkaline Phosphatase Total Protein Albumin Lipase COVID-19 Source SARS-CoV-2 (PCR)
--- NOTE | 2022-09-10 16:40 | PDOC.CMIN ---
- If Service Date Differs Date of service: 09/10/22 Time of Service: 16:40 Care Management Initial Assess REASON FOR HOSPITALIZATION:: strangulated umbilical hernia PAST MEDICAL HISTORY/PAST SURGICAL HISTORY:: All Active Problems. Cirrhosis of liver with ascites (Acute). Strangulated umbilical hernia (Acute). Alcoholism (Acute). Elevated liver enzymes (Acute). Hypokalemia (Acute). Hyponatremia (Acute). Liver mass (Acute). Tobacco user (Acute). Ascites due to alcoholic cirrhosis (Acute). Tense ascites (Acute). Medical History. ADHD. Anxiety. Deficiency of folic acid. History of abdominal paracentesis. Hyperlipidemia. Impaired fasting glucose. Leukocytosis. Mixed anxiety and depressive disorder. Subclinical hyperthyroidism PREVIOUS FUNCTIONAL STATUS/SOCIAL/FAMILY SUPPORTS:: Rodríguez lives in [place], alone. His girlfriend, Karolina, lives nearby. 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 He is independent at baseline. CURRENT FUNCTIONAL STATUS:: Rodríguez was lying in bed when CM met with him. His girlfriend was in the room visiting. Rodríguez stated that he is feeling good about his plan, and spoke with the MD earlier today. He verbalized understanding of his discharge plan, which will be to return home with close follow up. He is unsure about his dressing care for his wounds. CM will continue to follow. ADVANCE DIRECTIVES:: Not on file. Has patient been provided with info about the portal/API?: Yes Did the patient sign up for the portal?: Yes (active) CODE STATUS:: Full Code INSURANCE COVERAGE / FINANCIAL ISSUES:: REGI CURRENT HOME/COMMUNITY SERVICES/EQUIPMENT:: None. PRIMARY CARE PHYSICIAN:: Elli Gleason POTENTIAL DISCHARGE NEEDS:: Dressing/wound care coordination, follow up appointments. PATIENT/FAMILY EDUCATION NEEDS:: Review discharge instructions and limitations, discussion of self care needs including ask me three. ANTICIPATED BARRIERS TO DISCHARGE:: None. TRANSPORTATION:: Via private vehicle by his gf. PLAN:: Anticipate Rodríguez will return home when medically cleared. He may need HH for wound care, CM will discuss with MD. His s/o will follow up with his PCP and discharge plan of care. CM will continue to follow.
[2022-09-11] MEDS: Acetaminophen 500 MG TAB PO ×2 (00:15→05:58)
[2022-09-11] MEDS: Normal Saline Flush 10 ML SYR IVP ×2 (00:15→07:47)
[2022-09-11] MEDS: PIPERACILLIN/TAZO 3.375 GM in Normal Saline 50 ML IVPB ×2 (00:16→05:54)
[2022-09-11] MEDS: Normal Saline 500 ML 30 ML IV (00:16)
[2022-09-11 02:21] VITALS: BP 118/61; PULSE 64; RESP 16; TEMP 36.4; O2SAT 97
[2022-09-11 07:11] VITALS: BP 103/61; PULSE 62; RESP 16; TEMP 36.6; O2SAT 97
--- NOTE | 2022-09-11 07:19 | DSE_ITS ---
Date of service: 09/11/22 Time of Service: 07:24 DS: Diagnosis Discharge Diagnosis (1) Strangulated umbilical hernia: Status: Acute Asessment and Plan: Follow up next week and we can reassess when to perform paracentesis Discharge Plan Disposition Patient Disposition: Home Condition: Good Discharge Details Reason For Visit: Strangulated Umbilical Hernia Admit Date/Time: 09/09/22 23:42 Admit Provider: Darron Osorio Attending Provider: Darron Osorio [facility] Course: Rodríguez is a 52-year-old male with alcohol sclerosis and chronic ascites as well as a known umbilical hernia. The hernia had been reducible until Wednesday night. It became hard and exquisitely tender. He came to the ED and CT conformed involvement of small intestine. He went to the OR where the intestine was re duced and the hernia was repaired primarily. Home Meds and New Rx's Prescriptions: New amoxicillin-pot clavulanate 875-125 mg tablet 1 tab PO BID Qty: 14 0RF Rx Instructions: Take one tablet by mouth in the morning and one tablet by mouth in the evening. Continued tramadol 100 mg tablet 100 mg PO BID PRN (Reason: pain) Qty: 20 1RF Rx Instructions: take 1 tab by mouth as needed for pain amitriptyline 10 mg tablet 10 mg PO QHS Ensure Active High Protein Liquid 125 ml PO DAILY PRN omega 3-dbb-wtu-fish oil [Fish Oil] 60-90-500 mg capsule 1 cap PO DAILY hydroxyzine HCl 25 mg tablet 25 mg PO TID PRN furosemide [Lasix] 20 mg tablet 20 mg PO DAILY magnesium oxide 400 mg magnesium capsule 400 mg PO DAILY polyethylene glycol 3350 [Miralax] 17 gram/dose powder 17 g PO DAILY PRN omeprazole 20 mg capsule,delayed release(DR/EC) 20 mg PO DAILY spironolactone 100 mg tablet 100 mg PO DAILY zolpidem [Ambien] 5 mg tablet 5 mg PO QHS PRNQty: 90 3RF milk thistle 200 mg Capsule 200 mg PO DAILY Rx Instructions: give with meal/snack potassium chloride 20 mEq tablet,ER particles/crystals 1 tab PO QWEEK Label Comments: TAKE ONE TABLET BY MOUTH THREE TIMES TODAY. THEN DECREASE TO TAKE ONE TABLET BY MOUTH EVERY MORNING dandelion root 500 mg Capsule 500 mg PO DAILY folic acid 1 mg tablet 1 tab PO DAILY Label Comments: TAKE ONE TABLET BY MOUTH EVERY DAY zinc 50 mg Tablet 50 mg PO DAILY Discharge Instructions Additional Instructions: 1. Resume all of your medications. 2. Okay to use tylenol and ibuprofen over the counter as needed. 3. Leave bandage in place for 24 hours, then remove. Okay to use heating pads or cold packs as necessary for discomfort. 4. Shower with warm soapy water. Pat dry. Use a bandaid if needed to protect your clothing. 5. No soaking or tub baths until I see you in the office. 6. No heavy lifting until I see you in the office. 7.Call the office (or go directly to the emergency room after hours) if you notice any of the following: Develop chills (warm to touch), or if you have a thermometer and your temperature is above 101 Difficulty breathing or difficultly swallowing Persistent vomiting Any bleeding ? exceeding one tablespoon 8. Call your physician if the site where your intravenous was started becomes red, swollen, painful, and warm to touch. Stand Alone Forms: Nursing Discharge Form Referrals: Kong Shrestha [ NON-[facility] ST[facility]FF PHYSICIAN] - (New patient consult for alcoholic cirrhosis management ) James Barry MD [ [facility]FF PHYSICIAN] - (Follow up with me on 09/23 at 1 PM for assessment of next paracentesis) Activity:: no heavy lifting Equipment/Supplies:: No Equipment Needed Diet:: As Tolerated DS: Summary Time Spent with Patient providing and/or coordinating discharge services: Less than 30 minutes Status at Discharge Functional status at discharge: independent ambulation Overall status at discharge: patient is back to baseline Mental Status: mental status grossly normal Speech and Movement: speech and movement normal Mood: congruent mood Affect: normal affect Exam Const General: cooperative, healthy appearing and comfortable Orientation: awake and oriented x3 Eyes General: appearance normal, both eyes and all related structures Conjunctivae: conjunctivae normal Sclera: sclerae normal Resp Effort & Inspection: normal respiratory effort and able to speak in complete sentences Cardio Jugular venous pressure: no JVD Rate: regular rate GI Inspection: non-distended Palpation: soft, no guarding and nontender Auscultation: normal bowel sounds Other: Umbilical hernia repair is clean, there is no erythema, there is minimal tenderness Skin General skin exam: normal turgor Neuro General: patient alert, patient awake and patient oriented x3 Cognition: normal cognition Extrem Right lower extremity: no edema Left lower extremity: no edema Psych Mental Status: mental status grossly normal Speech and Movement: speech and movement normal Mood: congruent mood Affect: normal affect DS: Data Vitals/I&O Vitals and I&O: Vital Signs Temperature 97.9 F 09/11/22 07:11 Temperature Source Tympanic 09/11/22 07:11 Pulse 62 09/11/22 07:11 Pulse Rhythm Regular 09/11/22 02:41 Respiratory Rate 16 09/11/22 07:11 Respiratory Effort Non-Labored 09/11/22 02:41 Respiratory Depth Normal 09/11/22 02:41 Respiratory Pattern Normal 09/11/22 02:41 Blood Pressure 103/61 09/11/22 07:11 Blood Pressure Position Sitting 09/09/22 19:21 Pulse Oximetry 97 09/11/22 07:11 Respiratory End-tidal CO2 42 09/10/22 00:00 Oxygen Delivery Method Room Air 09/11/22 07:11 Oxygen Flow Rate 0 09/11/22 07:11 Pain Level 3 09/11/22 07:11 Intake & Output 09/10/22 09/10/22 09/11/22 11:59 23:59 11:59 Intake Total 310 / 910 600 / 910 50 / 50 Balance 310 / 910 600 / 910 50 / 50 Intake: IV 70 / 670 600 / 670 50 / 50 Oral 240 / 240 Other: Urine Color Yellow Urine Appearance Clear Clear Comment Patient up independent to the bathroom. voids independently Emesis Description None Voiding Methods Toilet Toilet Toilet Data Completed and Pending Labs on day of discharge: Labs from last 24 hours 09/10/22 06:20 Sodium 133 L Potassium 4.4 Chloride 101 Carbon Dioxide 25.4 Anion Gap 6.6 BUN 14 Creatinine 1.0 Est GFR (CKD-EPI 2020) 90.56 Glucose 143 H Calcium 8.9 Total Bilirubin 0.7 AST 25 ALT 18 Alkaline Phosphatase 92 Total Protein 7.2 Albumin 2.9 L PFSH All Active Problems Cirrhosis of liver with ascites (Acute) Strangulated umbilical hernia (Acute) Alcoholism (Acute) Elevated liver enzymes (Acute) Hypokalemia (Acute) Hyponatremia (Acute) Liver mass (Acute) Tobacco user (Acute) Ascites due to alcoholic cirrhosis (Acute) Tense ascites (Acute) Medical History ADHD Anxiety Deficiency of folic acid History of abdominal paracentesis Hyperlipidemia Impaired fasting glucose Leukocytosis Mixed anxiety and depressive disorder Subclinical hyperthyroidism Social History Smoking/Tobacco Use Status: Current every day Tobacco Type: cigarettes Years smoked: 35 Smoking risk assessment performed?: Yes Alcohol Intake: former Drug use: Occasionally Substance use type: marijuana Details: Bowl w/friends on occassion Do you feel safe at home: Yes Do you feel safe in your relationship?: Yes
[2022-09-11] MEDS: Omeprazole 20 MG CAPCR PO (07:46)
[2022-09-11] MEDS: Heparin 5,000 UNITS/ML VIAL 5000 UNITS SC (07:46)
[2022-09-11] MEDS: Furosemide 20 MG TAB PO (07:46)
[2022-09-11] MEDS: Spironolactone 50 MG TAB 100 MG PO (07:46)
--- NOTE | 2022-09-11 12:17 | PDOC.CMDIS ---
- If Service Date Differs Date of service: 09/11/22 Time of Service: 12:17 LACE Index Scoring Tool - Questions: Length of Stay (in days): 2 Acuity (Admit via E.D.?): Yes Comorbidities: Any Tumor, Liver or Renal Disease E.D. Visits: 1 - Answers: Total Score: 11 Risk of Readmission: High Risk Care Management Discharge Reason for Hospitalization: strangulated umbilical hernia Discharge Plan: Rodríguez returned home today with no new services. His girlfriend drove him home via private vehicle. He will follow up with [facility]22 at 1pm. He is happy to be returning home. Patient/Family Education Needs: Review discharge instructions and limitations, discussion of self care needs including ask me three.
== END 2022-09-11 09:01 | disposition home or self-care (01) | DRG 354 ==
LOC: ER 19:40 → DSU 22:35 → MS 09-10 00:16
PROVIDERS: Admitting Provider Student in an Organized Health Care Education/Training Program; Emergency Provider Nurse Practitioner Family; PCP Family Medicine; Visit Provider Student in an Organized Health Care Education/Training Program
PROC: 0WQF4ZZ Repair Abdominal Wall, Percutaneous Endoscopic Approach (ICD-10-PCS; CPT 49650; principal; 2022-09-09 21:45)
DX: K42.0 Umbilical hernia with obstruction, without gangrene (principal); E87.1 Hypo-osmolality and hyponatremia; K70.31 Alcoholic cirrhosis of liver with ascites; E87.6 Hypokalemia; F90.9 Attention-deficit hyperactivity disorder, unspecified type; E53.8 Deficiency of other specified B group vitamins; E78.5 Hyperlipidemia, unspecified; R73.01 Impaired fasting glucose; F41.8 Other specified anxiety disorders; F17.210 Nicotine dependence, cigarettes, uncomplicated; E05.90 Thyrotoxicosis, unspecified without thyrotoxic crisis or storm; R11.2 Nausea with vomiting, unspecified
CPT/HCPCS: 49653; 36415; 80053; 83690; 87635; 96374; 96375; 99285; 74177; 83605; 83735; 85025; 85610; 99284; J1100; J1170; J1644; J1885; J2405; J2543; J2704; J3360; J3490

== ENCOUNTER 2022-10-01 16:50 | Outpatient (REF) | payer MEDICAID, SELFPAY ==
[2022-10-01 19:42] LABS: ALT 24 U/L (16-63); AST 28 U/L (15-37); Albumin 3.4 g/dL (3.4-5.0); Alkaline Phosphatase 112 U/L (46-116); BUN 14 mg/dL (7-18); Bilirubin, Total 0.7 mg/dL (0.2-1.0); CREATININE 0.9 mg/dL (0.70-1.30); Calcium 9.2 mg/dL (8.5-10.1); Calculated LDL 86 mg/dL (<100); Chloride 100 mmol/L (98-107); Cholesterol 148 mg/dL (<200); Estimated GFR 102.76 (mL/min/1.73m2); Glucose 89 mg/dL (74-106); HDL Cholesterol 48 mg/dL (40-60); Potassium 4.2 mmol/L (3.5-5.1); Sodium 137 mmol/L (136-145); Total Protein 8.3 g/dL (6.4-8.2); Triglyceride 73 mg/dL (<150); Vitamin B12 548 pg/mL (193-986)
[2022-10-01 19:44] LABS: Folate > 20.0 ng/mL (8.6-20.0)
[2022-10-05 15:17] LABS: Albumin g/dL 3.8 g/dL (3.6-5.2); Comment (See Note); Monoclonal Spike g/dL 0.3 g/dL (None Seen); Total Protein 7.9 g/dL (6.3-8.2)
[2022-10-05 15:29] LABS: Immunotyping, Serum (See Note)
[2022-10-07 15:55] LABS: Testosterone, Free 6.75 ng/dL (4.06-15.6); Testosterone, Total 359 ng/dL (240-950)
== END 2022-10-01 16:51 | disposition home or self-care (01) ==
LOC: NCHCN 16:50
PROVIDERS: PCP Family Medicine; Visit Provider Internal Medicine
DX: D52.9 Folate deficiency anemia, unspecified (principal); K70.30 Alcoholic cirrhosis of liver without ascites
CPT/HCPCS: 80053; 80061; 84402; 84403; 82607; 82746; 84165; 86320

== ENCOUNTER 2022-11-12 06:52 | Day surgery (SDC) | payer MEDICAID, SELFPAY ==
--- NOTE | 2022-11-11 20:54 | W.PM.DSUDISC ---
Date of service: 11/12/22 Time of Service: 08:23 Discharge Plan Disposition Patient Disposition: Home Condition: Good Discharge Details Reason For Visit: Paracentesis Attending Provider: James Barry Primary Care Provider: FOUZIA GONZALEZ Home Meds and New Rx's Prescriptions: Continued tramadol 100 mg tablet 100 mg PO BID PRN (Reason: pain) Qty: 20 1RF Rx Instructions: take 1 tab by mouth as needed for pain amitriptyline 10 mg tablet 10 mg PO QHS Ensure Active High Protein Liquid 125 ml PO DAILY PRN omega 6-yel-qyh-fish oil [Fish Oil] 60-90-500 mg capsule 1 cap PO DAILY hydroxyzine HCl 25 mg tablet 25 mg PO TID PRN furosemide [Lasix] 20 mg tablet 20 mg PO DAILY magnesium oxide 400 mg magnesium capsule 400 mg PO DAILY polyethylene glycol 3350 [Miralax] 17 gram/dose powder 17 g PO DAILY PRN omeprazole 20 mg capsule,delayed release(DR/EC) 20 mg PO DAILY spironolactone 100 mg tablet 100 mg PO DAILY zolpidem [Ambien] 5 mg tablet 5 mg PO QHS PRNQty: 90 3RF milk thistle 200 mg Capsule 200 mg PO DAILY Rx Instructions: give with meal/snack potassium chloride 20 mEq tablet,ER particles/crystals 1 tab PO QWEEK Patient Comments: TAKE ONE TABLET BY MOUTH THREE TIMES TODAY. THEN DECREASE TO TAKE ONE TABLET BY MOUTH EVERY MORNING folic acid 1 mg tablet 1 tab PO DAILY Patient Comments: TAKE ONE TABLET BY MOUTH EVERY DAY zinc 50 mg Tablet 50 mg PO DAILY Discharge Instructions Instructions: Paracentesis (DC) Additional Instructions: Rodríguez we were able to drain about 6 L of fluid today. Hopefully, the next few weeks will be consistent with your more recent experiences. We can schedule the next paracentesis at your convenience, when you feel like the fluid starts to reaccumulate. Activity:: Activity as Tolerated Diet:: As Tolerated Discharge Orders Discharge Orders: Discharge Order (Routine); Ordered 11/11/22 Ordered By: James Barry DS: Diagnosis Discharge Diagnosis (1) Tense ascites: Status: Acute Asessment and Plan: Status post therapeutic paracentesis today
--- NOTE | 2022-11-11 20:56 | ROE_ITS ---
Date of service: 11/12/22 Time of Service: 08:24 Operative Note Operative Note DATE OF PROCEDURE: 11/12/22 PRE-OP DIAGNOSIS: Ascites POST-OP DIAGNOSIS: same PROCEDURE: Paracentesis SURGEON: James Barry ANESTHESIA TYPE: Local By Surgeon ESTIMATED BLOOD LOSS: 5 COMPLICATIONS: None Patient was transported to: same day Patient's condition: stable Indications: Rodríguez is a 52-year-old male with cirrhosis and recurrent ascites. Findings: 6 Liters Procedure Description: I started by performing a limited ultrasound of the abdomen to identify appropriate site for paracentesis. Next, I selected the left as the ideal site for paracentesis. I then prepped and draped the abdomen. Next, using ultrasound guidance, I anesthetized the skin with 1% lidocaine with epinephrine. I used the ultrasound to guide the needle down to the peritoneal level which was also anesthetized. I then made a small incision in the skin with a 11 blade scalpel. Next, I advanced the 5 [place]ian paracentesis needle and catheter through the incision and into the peritoneal cavity under the direct vision of the ultrasound. I aspirated straw-colored clear ascites. Next, I gently advance the catheter and remove the needle. I affixed drainage tubing, and began draining the ascites with the assistance of Vacutainer's. I drained 5.5 L of ascites. As the flow decreased, I assisted the patient to the left lateral decubitus position to improve drainage. Once the ascites stopped flowing, I removed the catheter and used a Band-Aid to dress the wound. In total we drained 6 L of ascites
[2022-11-12 07:19] VITALS: BP 109/73; PULSE 95; RESP 16; TEMP 37; O2SAT 99
[2022-11-12] MEDS: Normal Saline Flush 10 ML SYR IVP ×3 (07:34→08:43)
[2022-11-12 08:12] VITALS: BP 102/67; PULSE 75; RESP 16; TEMP 36.3; O2SAT 100
[2022-11-12] MEDS: ALBUMIN HUMAN 25 GM/100 ML BTL IVPB (08:20)
== END 2022-11-12 08:52 | disposition home or self-care (01) ==
PROVIDERS: PCP Family Medicine; Visit Provider Surgery
PROC: 0W9G3ZZ Drainage of Peritoneal Cavity, Percutaneous Approach (ICD-10-PCS; CPT 49082; principal; 2022-11-12 07:30)
DX: K70.31 Alcoholic cirrhosis of liver with ascites (principal)
CPT/HCPCS: 49082; 96365

== ENCOUNTER 2022-11-13 15:28 | Outpatient (REF) | payer MEDICAID, SELFPAY ==
[2022-11-15 10:55] LABS: COVID-19 RT-PCR UVMMC Result Negative (Negative)
== END 2022-11-13 15:29 | disposition home or self-care (01) ==
LOC: NCHCN 15:28
PROVIDERS: PCP Family Medicine; Visit Provider Internal Medicine
DX: Z20.822 Contact with and (suspected) exposure to COVID-19 (principal); J06.9 Acute upper respiratory infection, unspecified
CPT/HCPCS: U0003

== ENCOUNTER 2022-11-30 10:43 | Day surgery (SDC) | payer MEDICAID, SELFPAY ==
--- NOTE | 2022-11-29 21:19 | W.PM.DSUDISC ---
Date of service: 11/30/22 Time of Service: 12:10 Discharge Plan Disposition Patient Disposition: Home Condition: Fair Discharge Details Reason For Visit: Paracentesis Attending Provider: James Barry Primary Care Provider: FOUZIA GONZALEZ Home Meds and New Rx's Prescriptions: Continued tramadol 100 mg tablet 100 mg PO BID PRN (Reason: pain) Qty: 20 1RF Rx Instructions: take 1 tab by mouth as needed for pain amitriptyline 10 mg tablet 10 mg PO QHS Ensure Active High Protein Liquid 125 ml PO DAILY PRN omega 8-bxf-bbp-fish oil [Fish Oil] 60-90-500 mg capsule 1 cap PO DAILY hydroxyzine HCl 25 mg tablet 25 mg PO TID PRN furosemide [Lasix] 20 mg tablet 20 mg PO DAILY magnesium oxide 400 mg magnesium capsule 400 mg PO DAILY polyethylene glycol 3350 [Miralax] 17 gram/dose powder 17 g PO DAILY PRN omeprazole 20 mg capsule,delayed release(DR/EC) 20 mg PO DAILY spironolactone 100 mg tablet 100 mg PO DAILY zolpidem [Ambien] 5 mg tablet 5 mg PO QHS PRNQty: 90 3RF milk thistle 200 mg Capsule 200 mg PO DAILY Rx Instructions: give with meal/snack potassium chloride 20 mEq tablet,ER particles/crystals 1 tab PO QWEEK Patient Comments: TAKE ONE TABLET BY MOUTH THREE TIMES TODAY. THEN DECREASE TO TAKE ONE TABLET BY MOUTH EVERY MORNING folic acid 1 mg tablet 1 tab PO DAILY Patient Comments: TAKE ONE TABLET BY MOUTH EVERY DAY zinc 50 mg Tablet 50 mg PO DAILY No Action acetaminophen [Tylenol Extra Strength] 500 mg Capsule 1,000 mg PO QID PRN Discharge Instructions Additional Instructions: ana Arreguin drained 5.2 L of ascites today. Like we talked about after the procedure, your Band-Aid is a little bit bloody. Try to leave it until tomorrow. If that works, remove it tomorrow wash it with soap and water, and follow with your usual regimen. If you need to change it beforehand, that is fine too. Plan to do your next paracentesis in about 4 to 5 weeks just like this time. Activity:: Activity as Tolerated Remove Dressings/Wound Care:: 24 hours Shower/Bathe:: 24 hours Diet:: As Tolerated Discharge Orders Discharge Orders: Discharge Order (Routine); Ordered 11/29/22 Ordered By: James Barry DS: Diagnosis Discharge Diagnosis (1) Ascites due to alcoholic cirrhosis: Status: Acute
--- NOTE | 2022-11-29 21:21 | W.PM.OP ---
Date of service: 11/30/22 Time of Service: 12:05 Operative Note Operative Note DATE OF PROCEDURE: 11/30/22 PRE-OP DIAGNOSIS: Ascites POST-OP DIAGNOSIS: same PROCEDURE: Paracentesis SURGEON: James Barry ANESTHESIA TYPE: Local By Surgeon ESTIMATED BLOOD LOSS: 5 PATHOLOGY: none sent COMPLICATIONS: None Patient was transported to: same day Indications: Rodríguez is a 52-year-old male with alcoholic cirrhosis and ascites. He requires frequent therapeutic paracentesis for tense ascites Findings: 5250 ml ascites Procedure Description: I started by performing a limited ultrasound of the abdomen to identify appropriate site for paracentesis. Next, I selected the left lower quadrant as the ideal site for paracentesis. I then prepped and draped the abdomen. Next, using ultrasound guidance, I anesthetized the skin with 1% lidocaine with epinephrine. I used the ultrasound to guide the needle down to the peritoneal level which was also anesthetized. I then made a small incision in the skin with a 11 blade scalpel. Next, I advanced the 5 [place] paracentesis needle and catheter through the incision and into the peritoneal cavity under the direct vision of the ultrasound. I aspirated straw-colored ascites. Next, I gently advance the catheter and remove the needle. I affixed drainage tubing, and began draining the ascites with the assistance of Vacutainer's. Using a combination of Vacutainer's, hand pumping, and patient positioning, I drained 5250 mL of ascites. I removed the catheter, and affixed a Band-Aid to the puncture site.
[2022-11-30 11:11] VITALS: BP 101/72; PULSE 75; RESP 18; TEMP 36.6; O2SAT 100
[2022-11-30 12:12] VITALS: BP 106/69; PULSE 77; RESP 16; TEMP 36.7; O2SAT 100
[2022-11-30] MEDS: Normal Saline Flush 10 ML SYR IV (12:20)
[2022-11-30] MEDS: ALBUMIN HUMAN 25 GM/100 ML BTL IVPB (12:25)
== END 2022-11-30 12:48 | disposition home or self-care (01) ==
LOC: SUR 10:43
PROVIDERS: PCP Family Medicine; Visit Provider Surgery
PROC: 0W9G3ZZ Drainage of Peritoneal Cavity, Percutaneous Approach (ICD-10-PCS; CPT 49082; principal; 2022-11-30 12:00)
DX: K70.31 Alcoholic cirrhosis of liver with ascites (principal)
CPT/HCPCS: 49083; 96365

== ENCOUNTER 2022-12-02 13:25 | Emergency (ER) | payer MEDICAID, SELFPAY ==
[2022-12-02 13:31] VITALS: BP 114/66; PULSE 78; RESP 18; TEMP 36.3; O2SAT 96
--- NOTE | 2022-12-02 15:56 | DI.CT_ITS ---
Exam(s) CT ABDOMEN PELVIS W EXAM: CT ABDOMEN PELVIS W CLINICAL HISTORY: left sided paracentesis; pain, swelling toabd wall. TECHNIQUE: Imaging Protocol: Axial computed tomography images with coronal and sagittal reformatted images were created and reviewed CONTRAST MATERIAL: Intravenous: Omnipaque 350 Contrast volume:100 ml Oral: / no COMPARISON: CT CT ABDOMEN PELVIS W from 09/09/2022 FINDINGS: ABDOMEN: Lung Bases: Normal where visualized. Liver: Parotic appearance with enlargement of the left lobe and caudate lobe. Nodular contour. Stab le cyst. Gallbladder and biliary tract: No radiodense calculus or dilation. Pancreas: Normal density, no abnormal calcifications or inflammatory process. Spleen: Enlarged Kidneys: Normal size, contour and axis. No radiodense stones or obstructive uropathy. No suspicious m asses seen. Adrenal glands: No masses seen. Abdominal Aorta: Abdominal portion non-dilated. Mild atherosclerotic changes. Soft tissues: The patient is status post repair of previously noted umbilical hernia. No recurrence hernia. Fluid is again noted within and superficial to the left lateral abdominal wall musculature. This could be secondary to a fascial defect allowing accumulation of ascitic fluid between the muscu lature. There is no drainable fluid collection or visible abscess. PELVIS: Bladder: No gross wall thickening. No calculi.No focal mass. Bowel: No obstruction. No bowel wall thickening. Moderate quantity of stool. Peritoneal cavity: Stable moderate quantity of ascites seen in the abdomen and pelvis. Bones: Unremarkable for age. Reproductive organs: Within normal limits. Lymph nodes: Unremarkable. Impression: Cirrhotic liver and ascites. Stable appearance of fluid within and superficial to the left lateral a bdominal wall musculature. Status post repair of previously noted incarcerated umbilical hernia. No evidence of recurrence. RADIATION DOSE DELIVERED: 896.71mGy.cm Total DLP DATA REPOSITORY: All CT scans at this facility are submitted to the National Radiology Data Registry (NRDR) Dose Index Registry (DIR) with the [employer] ([employer]). RADIATION OPTIMIZATION: All CT scans at this facility use at least one of these dose optimization te chniques: automated exposure control; mA and/or kV adjustment per patient size (includes targeted exa ms where dose is matched to clinical indication); or iterative reconstruction.
--- NOTE | 2022-12-02 16:20 | ED.GENADUL_ITS ---
Discharge Plan Disposition Patient Disposition: Home Discharge Details Chief Complaint: Abd Prob Clinical Impression: Abdominal wall hematoma, Liver mass Primary Care Provider: FOUZIA GONZALEZ ED Provider: Nestor Loyola Home Meds and New Rx's Prescriptions: No Action tramadol 100 mg tablet 100 mg PO BID PRN (Reason: pain) Qty: 20 1RF Rx Instructions: take 1 tab by mouth as needed for pain amitriptyline 10 mg tablet 10 mg PO QHS omega 5-mdg-huo-fish oil [Fish Oil] 60-90-500 mg capsule 1 cap PO DAILY hydroxyzine HCl 25 mg tablet 25 mg PO TID PRN furosemide [Lasix] 20 mg tablet 20 mg PO DAILY magnesium oxide 400 mg magnesium capsule 400 mg PO DAILY polyethylene glycol 3350 [Miralax] 17 gram/dose powder 17 g PO DAILY PRN omeprazole 20 mg capsule,delayed release(DR/EC) 20 mg PO DAILY spironolactone 100 mg tablet 100 mg PO DAILY acetaminophen [Tylenol Extra Strength] 500 mg Capsule 1,000 mg PO QID PRN zolpidem [Ambien] 5 mg tablet 5 mg PO QHS PRNQty: 90 3RF milk thistle 200 mg Capsule 200 mg PO DAILY Rx Instructions: give with meal/snack potassium chloride 20 mEq tablet,ER particles/crystals 1 tab PO QWEEK Patient Comments: pt no longer takes this medication 12/02/2022 CT folic acid 1 mg tablet 1 tab PO DAILY Patient Comments: TAKE ONE TABLET BY MOUTH EVERY DAY zinc 50 mg Tablet 50 mg PO DAILY Ensure High Protein Liquid 125 ml PO DAILY PRN Patient Comments: DRINK 1 BOTTLE BY MOUTH ONCE DAILY Discharge Instructions Instructions: Hematoma (ED) Additional Instructions: Please follow-up with your liver specialist as well as your general surgeon; please return to the emergency room for any worsening symptoms. Please discuss at your follow-up appointments the liver mass that was found on your CT scan. Medical Decision Making 52-year-old male history of cirrhosis 2 days status post left lower abdominal wall paracentesis presents with induration discomfort to left lower abdominal wall, localized induration mild erythema no fluctuance or purulence noted, no ecchymosis. Patient is nonperitoneal. Afebrile nontoxic. Consider abdominal wall hematoma lower suspicion for infectious process such as abscess or spontaneous bacterial peritonitis given history and physical most also consider abdominal wall cellulitis. Will obtain basic labs inflammatory markers CT abdomen pelvis analgesia close reassessment likely home with close follow-up. 18: 49 history and physical as well as CT scan consistent with likely abdominal wall hematoma. Patient hemodynamically stable. Normal platelet count and co agulation factors; nonperitoneal, no white count, afebrile. Low suspicion for cellulitis. Patient has follow-up with his liver specialist as well as general surgery. Incidental liver mass seen on CT scan. Information conveyed to family and patient. They will follow-up closely with her specialist teams. HPI General Date/Time Provider Initiated Documentation: 12/02/22 15:42 . HPI Narrative: 52-year-old male history of cirrhosis, 2 days status post left-sided paracentesis presents with firmness and tenderness to left side abdominal wall. Denies fevers chills nausea vomiting or other systemic signs of illness. Related Data Home Medications Medication Instructions Recorded Confirmed amitriptyline 10 mg tablet 10 mg PO QHS 03/31/22 12/02/22 furosemide 20 mg tablet (Lasix) 20 mg PO DAILY 03/31/22 12/02/22 hydroxyzine HCl 25 mg tablet 25 mg PO TID PRN 03/31/22 12/02/22 magnesium oxide 400 mg PO DAILY 03/31/22 12/02/22 omega 8-bqr-znl-fish oil 60 mg-90 1 cap PO DAILY 03/31/22 12/02/22 mg-500 mg capsule (Fish Oil) omeprazole 20 mg capsule,delayed 20 mg PO DAILY 03/31/22 12/02/22 release polyethylene glycol 3350 17 17 g PO DAILY PRN 03/31/22 12/02/22 gram/dose oral powder (Miralax) spironolactone 100 mg tablet 100 mg PO DAILY 03/31/22 12/02/22 zolpidem 5 mg tablet (Ambien) 5 mg PO QHS PRN #90 tabs 07/06/22 12/02/22 folic acid 1 mg tablet 1 tab PO DAILY 09/08/22 12/02/22 milk thistle 200 mg capsule 200 mg PO DAILY 09/08/22 12/02/22 potassium chloride 20 mEq 1 tab PO QWEEK 09/08/22 11/30/22 tablet,extended release(part/cryst) tramadol 100 mg tablet 100 mg PO BID PRN pain #20 tabs 09/08/22 12/02/22 zinc 50 mg tablet 50 mg PO DAILY 09/08/22 12/02/22 acetaminophen 500 mg capsule 1,000 mg PO QID PRN 11/30/22 12/02/22 food supplemt, lactose-reduced 125 ml PO DAILY PRN 12/02/22 12/02/22 (Ensure High Protein oral liquid) Previous Rx's Medication Instructions Recorded zolpidem 5 mg tablet (Ambien) 5 mg PO QHS PRN #90 tabs 07/06/22 tramadol 100 mg tablet 100 mg PO BID PRN pain #20 tabs 09/08/22 Allergies Allergy/AdvReac Type Severity Reaction Status Date / Time COVID-19 (SARS-CoV-2) Allergy Intermediate Skin Rash Verified 12/02/22 17:06 vaccine, alirio chlordiazepoxide Allergy Unknown Verified 12/02/22 17:06 levofloxacin Allergy Unknown Hives Verified 12/02/22 17:06 naltrexone AdvReac Intermediate abdominal Verified 12/02/22 17:06 pain-Pt is not sure General Stated Complaint: Abd Prob RYLEY: 3 Review of Systems Narrative: Review of Systems Constitutional: negative Eyes: negative ENT: negative Cardiovascular: negative Respiratory: negative Gastrointestinal: Left lower abdominal wall tenderness : negative Musculoskeletal: negative Skin: negative Neurologic: negative Psych: negative PFSH All Active Problems (Updated 12/02/22 @ 18:54 by Nestor Loyola MD) Alcoholism (Acute) Elevated liver enzymes (Acute) Hypokalemia (Acute) Hyponatremia (Acute) Liver mass (Acute) Tobacco user (Acute) Ascites due to alcoholic cirrhosis (Acute) Tense ascites (Acute) Cirrhosis of liver with ascites (Acute) Abdominal wall hematoma (Acute) Liver mass (Acute) Medical History (Updated 12/02/22 @ 18:54 by Nestor Loyola MD) ADHD Anxiety Deficiency of folic acid History of abdominal paracentesis Hyperlipidemia Impaired fasting glucose Leukocytosis Mixed anxiety and depressive disorder Subclinical hyperthyroidism Surgical History History of sinus surgery History of ventral hernia repair Hx of inguinal hernia repair as infant Hx of vasectomy Social History Smoking/Tobacco Use Status: Current every day Tobacco Type: cigarettes Years smoked: 35 Smoking risk assessment performed?: Yes Alcohol Intake: former Drug use: Occasionally Substance use type: marijuana Details: marijuana: t-30 Do you feel safe at home: Yes Do you feel safe in your relationship?: Yes Exam Narrative Exam Narrative: Physical Examination General: alert, awake, cooperative, resting comfortably, no acute distress HEENT: normocephalic, atraumatic; PERRL, EOM intact, conjunctiva normal; no nasal discharge; moist mucous membranes, oral and pharyngeal mucosa normal, tolerating secretions Neck: supple, trachea midline; full ROM Chest: normal to inspection Respiratory: normal respiratory effort, speaking in full sentences, clear to auscultation, no wheezing, rales or rhonchi Cardiac: regular rate, regular rhythm, S1S2 intact, no murmurs rubs or gallops GI: abdomen soft, non-tender, non-distended; localized area of induration mild erythema to left lower abdominal wall mildly tender to the touch, no fluctuance or purulence; no ecchymosis noted Skin: See GI Neuro: AAOx3, normal speech, moving all extremities Psych: Appropriate mood and affect Course Vital Signs Vital signs: Vital Signs Temperature 36.3 C L 12/02/22 13:31 Pulse 78 12/02/22 13:31 Respiratory Rate 18 12/02/22 13:31 Blood Pressure 114/66 12/02/22 13:31 Pulse Oximetry 96 12/02/22 13:31 Temperature 36.3 C L 12/02/22 13:31 Pulse 78 12/02/22 13:31 Respiratory Rate 18 12/02/22 13:31 Respiratory Effort Normal 12/02/22 13:36 Blood Pressure 114/66 12/02/22 13:31 Pulse Oximetry 96 12/02/22 13:31 Oxygen Delivery Method Room Air 12/02/22 13:31 Oxygen Flow Rate 0 12/02/22 13:31 Pain Level 7 12/02/22 13:31
[2022-12-02 16:28] LABS: Abs Immature Grans 0.05 10^3/uL (0.0-0.06); Absolute Basophil Count 0.03 10^3/uL (0.0-0.2); Absolute Eosinophil Count 0.15 10^3/uL (0.0-0.7); Absolute Monocyte Count 0.67 10^3/uL (0.1-0.8); Absolute Neutrophil Count 5.76 10^3/uL (1.2-6.7); Basophils % 0.3; Eosinophils % 1.5; HCT 40.2 % (40.0-50.0); HGB 13.6 g/dL (13.5-17.5); Immature Grans % 0.5; Lymphocytes % 33.1; MCH 30.2 pg (27.0-33.0); MCHC 33.8 % (32.0-36.0); MCV 89 fL (80-95); MPV 8.2 fL (8.0-11.0); Monocytes % 6.7; Neutrophils % 57.9; Platelet Count 259 10^3/uL (130-400); RDW 13.8 % (11.8-14.1); RDW-SD 44.4 fL; WBC 9.96 10^3/uL (4.4-10.8)
[2022-12-02 16:39] LABS: PTT Activated 28.1 sec (21.5-31.9); Prothrombin Time 10.2 sec (9.3-11.0)
[2022-12-02 16:43] LABS: ALT 25 U/L (16-63); AST 19 U/L (15-37); Albumin 2.8 g/dL (3.4-5.0); Alkaline Phosphatase 117 U/L (46-116); Anion Gap 6.3 mmol/L (3-11); BUN 10 mg/dL (7-18); Bilirubin, Total 0.3 mg/dL (0.2-1.0); CO2 28.7 mmol/L (21.0-32.0); CREATININE 0.8 mg/dL (0.70-1.30); Calcium 8.7 mg/dL (8.5-10.1); Chloride 102 mmol/L (98-107); Estimated GFR 106.48 (mL/min/1.73m2); Glucose 106 mg/dL (74-106); Potassium 4.2 mmol/L (3.5-5.1); Sodium 137 mmol/L (136-145); Total Protein 7.2 g/dL (6.4-8.2)
[2022-12-02] MEDS: Ketorolac 15 MG/ML VIAL IVP (16:58)
[2022-12-02] MEDS: Normal Saline Flush 10 ML SYR IVP (17:04)
[2022-12-02] MEDS: Normal Saline - Diluent 50 ML VIAL IJ (17:04)
[2022-12-02] MEDS: Omnipaque 350 MG/ML 100 ML BTL IJ (17:05)
--- NOTE | 2022-12-02 17:44 | DI.VRAD_ITS ---
PROCEDURE INFORMATION: Exam: CT Abdomen And Pelvis With Contrast Exam date and time: 12/02/2022 5:07 PM Age: 52 years old Clinical indication: Other: Left sided paracentesis; Pain, swelling to abd wall TECHNIQUE: Imaging protocol: Computed tomography of the abdomen and pelvis with contrast. Contrast material: 350; Contrast volume: 100 ml; Contrast route: INTRAVENOUS (IV); COMPARISON: CT ABDOMEN PELVIS W 09/09/2022 8:25 PM FINDINGS: Liver: The liver is cirrhotic appearing with a micro lobular edge. There is heterogeneity of the enhancement pattern in the posterior segments of the right lobe. Findings are suggestive hepatocellular disease but not conclusive. MRI examination is suggested. There is a 1 cm simple cyst in the superior portion of segment VII. Gallbladder and bile ducts: Normal. No calcified stones. No ductal dilation. Pancreas: Normal. No ductal dilation. Spleen: Normal. No splenomegaly. Adrenal glands: Normal. No mass. Kidneys and ureters: Normal. No hydronephrosis. Stomach and bowel: Unremarkable. No obstruction. No mucosal thickening. Appendix: No evidence of appendicitis. Intraperitoneal space: Small amount of ascites. Vasculature: Unremarkable. No abdominal aortic aneurysm. Lymph nodes: Unremarkable. No enlarged lymph nodes. Urinary bladder: The urinary bladder has very little fluid within it. The wall is circumferentially thickened is likely normal at this time. Reproductive: Unremarkable as visualized. Bones/joints: Unremarkable. No acute fracture. Soft tissues: There is edema of the subcutaneous tissues along the anterior left flank. Fluid has dissected between the left flank abdominal wall musculature. There is also fluid superficial to the muscles but proximally 1 cm beneath the skin. None of this has the appearance of acute blood but if the patient has had paracentesis at this location in the past this may be resolving hematoma. The lateral musculature has from the attachment of the rectus abdominis muscle. IMPRESSION: 1. In the area of clinical concern is edema starting of the ribcage region extending inferiorly to the iliac crest area. There may be a tear of the fascia of the lateral abdominal musculature in the adjacent rectus muscle with old blood/fluid in the area of clinical concern. 2. Cirrhosis with heterogeneous enhancement of the posterior segments of the right lobe worrisome for hepatocellular carcinoma. 3. Small amount of ascites. Dictated and Authenticated by: Tre Yi MD. Ordering:KENNETH Baez MD
[2022-12-02 19:00] VITALS: BP 108/58; PULSE 76; RESP 15; TEMP 36.6; O2SAT 100
== END 2022-12-02 19:04 | disposition home or self-care (01) ==
PROVIDERS: Emergency Provider Emergency Medicine; PCP Family Medicine
DX: S30.1XXA Contusion of abdominal wall, initial encounter (principal); R16.0 Hepatomegaly, not elsewhere classified; K74.60 Unspecified cirrhosis of liver; X58.XXXA Exposure to other specified factors, initial encounter
CPT/HCPCS: 36415; 80053; 96374; 99285; 74177; 85025; 85610; 85730; 99284; J1885; J3490

== ENCOUNTER 2023-03-05 10:20 | Day surgery (SDC) | payer MEDICAID, SELFPAY ==
--- NOTE | 2023-03-04 20:20 | W.PM.DSUDISC ---
Date of service: 03/05/23 Time of Service: 12:15 Discharge Plan Disposition Patient Disposition: Home Condition: Good Discharge Details Reason For Visit: Paracentesis Attending Provider: James Barry Primary Care Provider: Kong Shrestha Home Meds and New Rx's Prescriptions: Continued tramadol 100 mg tablet 100 mg PO BID PRN (Reason: pain) Qty: 20 1RF Rx Instructions: take 1 tab by mouth as needed for pain amitriptyline 10 mg tablet 10 mg PO QHS omega 4-tdn-rev-fish oil [Fish Oil] 60-90-500 mg capsule 1 cap PO DAILY hydroxyzine HCl 25 mg tablet 25 mg PO TID PRN furosemide [Lasix] 20 mg tablet 20 mg PO DAILY magnesium oxide 400 mg magnesium capsule 400 mg PO DAILY polyethylene glycol 3350 [Miralax] 17 gram/dose powder 17 g PO DAILY PRN omeprazole 20 mg capsule,delayed release(DR/EC) 20 mg PO DAILY spironolactone 100 mg tablet 100 mg PO DAILY zolpidem 5 mg tablet 5 mg PO QHS Qty: 30 0RF acetaminophen 500 mg Capsule 1,000 mg PO QID PRN milk thistle 200 mg Capsule 200 mg PO DAILY Rx Instructions: give with meal/snack potassium chloride 20 mEq tablet,ER particles/crystals 1 tab PO QWEEK Patient Comments: pt no longer takes this medication 12/02/2022 CT folic acid 1 mg tablet 1 tab PO DAILY Patient Comments: TAKE ONE TABLET BY MOUTH EVERY DAY zinc 50 mg Tablet 50 mg PO DAILY Ensure High Protein Liquid 125 ml PO DAILY PRN Patient Comments: DRINK 1 BOTTLE BY MOUTH ONCE DAILY Discharge Instructions Additional Instructions: Rodríguez, just for your records, we drained about 6 L of ascites today. Like we talked about, have a discussion with your pull over at [facility] regarding your umbilical hernia, and their thoughts about another repair. And let us know next time you feel like you need another paracentesis. We all wish you the best, and hope that you feel well in the weeks to come. Activity:: Activity as Tolerated Diet:: As Tolerated Discharge Orders Discharge Orders: Discharge Order (Routine); Ordered 03/04/23 Ordered By: James Barry DS: Diagnosis Discharge Diagnosis (1) Ascites due to alcoholic cirrhosis: Status: Acute Asessment and Plan: 6 L paracentesis; follow-up in the office as needed for hernia evaluation, or schedule next paracentesis as needed
--- NOTE | 2023-03-04 20:22 | W.PROCNOTE ---
Date of service: 03/05/23 Time of Service: 12:16 Procedure Note Date of procedure: 03/05/23 Procedure: Paracenetesis Surgeon/Proceduralist/Physician: James Barry Procedure Diagnosis: Tense ascites Procedure Indications: And is a 52-year-old male with alcoholic cirrhosis and chronic ascites. He undergoes intermittent paracentesis when the ascites becomes tense. He is here today for therapeutic paracentesis. Procedure Description: I started by performing a limited ultrasound of the abdomen to identify appropriate site for paracentesis. Next, I selected the left lower quadrant as the ideal site for paracentesis. I then prepped and draped the abdomen. Next, using ultrasound guidance, I anesthetized the skin with 1% lidocaine with epinephrine. I used the ultrasound to guide the needle down to the peritoneal level which was also anesthetized. I then made a small incision in the skin with a 11 blade scalpel. Next, I advanced the 5 Turk[place] paracentesis needle and catheter through the incision and into the peritoneal cavity under the direct vision of the ultrasound. I aspirated straw-colored ascites. Next, I gently advance the catheter and remove the needle. I affixed drainage tubing, and began draining the ascites with the assistance of Vacutainer's. I drained approximately 4-1/2 L of ascites. As the flow decreased, I assisted the patient to the left lateral decubitus position to improve drainage and transitioned over to hand pumping. Once the ascites stopped flowing, I removed the catheter and used a Band-Aid to dress the wound. In total, we drained just about 6 L of ascites.
[2023-03-05 10:45] VITALS: BP 117/77; PULSE 66; RESP 16; TEMP 36.5; O2SAT 100
[2023-03-05 12:15] VITALS: BP 104/70; PULSE 69; RESP 17; TEMP 37; O2SAT 100
[2023-03-05] MEDS: ALBUMIN HUMAN 25 GM/100 ML BTL IVPB (12:26)
[2023-03-05 12:55] VITALS: BP 107/73; PULSE 67; RESP 17; TEMP 37; O2SAT 99
== END 2023-03-05 13:00 | disposition home or self-care (01) ==
PROVIDERS: PCP Internal Medicine; Visit Provider Surgery
PROC: 0W9G3ZZ Drainage of Peritoneal Cavity, Percutaneous Approach (ICD-10-PCS; CPT 49082; principal; 2023-03-05 11:30)
DX: K70.31 Alcoholic cirrhosis of liver with ascites (principal)
CPT/HCPCS: 49083

== ENCOUNTER 2023-03-09 21:47 | Outpatient (REF) | payer MEDICAID, SELFPAY ==
[2023-03-09 19:29] LABS: Abs Immature Grans 0.02 10^3/uL (0.0-0.06); Absolute Basophil Count 0.05 10^3/uL (0.0-0.2); Absolute Eosinophil Count 0.12 10^3/uL (0.0-0.7); Absolute Lymphocyte Count 3.07 10^3/uL (1.2-3.4); Absolute Monocyte Count 0.78 10^3/uL (0.1-0.8); Absolute Neutrophil Count 6.44 10^3/uL (1.2-6.7); Basophils % 0.5; Eosinophils % 1.1; HCT 40.7 % (40.0-50.0); Immature Grans % 0.2; Lymphocytes % 29.3; MCH 30.8 pg (27.0-33.0); MCHC 34.4 % (32.0-36.0); MCV 90 fL (80-95); MPV 8.8 fL (8.0-11.0); Monocytes % 7.4; Neutrophils % 61.5; Platelet Count 385 10^3/uL (130-400); RBC 4.55 10^6/uL (4.36-5.78); RDW 13.2 % (11.8-14.1); RDW-SD 43.3 fL; WBC 10.48 10^3/uL (4.4-10.8)
[2023-03-09 19:34] LABS: Prothrombin Time 9.7 sec (9.3-11.0)
[2023-03-09 19:39] LABS: ALT 33 U/L (16-63); AST 27 U/L (15-37); Alkaline Phosphatase 128 U/L (46-116); Anion Gap 3.8 mmol/L (3-11); BUN 15 mg/dL (7-18); Bilirubin, Total 0.3 mg/dL (0.2-1.0); CO2 30.2 mmol/L (21.0-32.0); CREATININE 1.1 mg/dL (0.70-1.30); Calcium 8.8 mg/dL (8.5-10.1); Chloride 98 mmol/L (98-107); Estimated GFR 80.77 (mL/min/1.73m2); Glucose 106 mg/dL (74-106); Potassium 4.4 mmol/L (3.5-5.1); Sodium 132 mmol/L (136-145); Total Protein 7.9 g/dL (6.4-8.2)
== END 2023-03-09 21:48 | disposition home or self-care (01) ==
LOC: LBN 21:47
PROVIDERS: PCP Internal Medicine; Visit Provider Nurse Practitioner Adult Health
DX: K70.30 Alcoholic cirrhosis of liver without ascites
CPT/HCPCS: 80053; 85025; 85610

== ENCOUNTER 2023-03-26 09:20 | Day surgery (SDC) | payer MEDICAID, SELFPAY ==
--- NOTE | 2023-03-25 18:28 | OPPNE_ITS ---
Date of service: 03/26/23 Time of Service: 11:50 Procedure Note Date of procedure: 03/26/23 Procedure: Paracentesis Surgeon/Proceduralist/Physician: James Barry Procedure Diagnosis: Ascites Procedure Indications: Rodríguez is a 52-year-old male with chronic tense ascites. He is here for another paracentesis. Procedure Description: I started by performing a limited ultrasound of the abdomen to identify appropriate site for paracentesis. Next, I selected the left lower quadrant as the ideal site for paracentesis. I then prepped and draped the abdomen. Next, using ultrasound guidance, I anesthetized the skin with 1% lidocaine with epinephrine. I used the ultrasound to guide the needle down to the peritoneal level which was also anesthetized. I then made a small incision in the skin with a 11 blade scalpel. Next, I advanced the 5 Tamazight paracentesis needle and catheter through the incision and into the peritoneal cavity under the direct vision of the ultrasound. I aspirated straw-colored ascites. Next, I gently advance the catheter and remove the needle. I affixed drainage tubing, and began draining the ascites with the assistance of Vacutainer's. As the flow decreased, I assisted the patient to the left lateral decubitus position to improve drainage. I transitioned over to hand pumping for completion. Once the ascites stopped flowing, I removed the catheter and used a Band-Aid to dress the wound. In total, we drained right around 5 L of fluid today.
--- NOTE | 2023-03-25 18:29 | W.PM.DSUDISC ---
Date of service: 03/25/23 Time of Service: 11:49 Discharge Plan Disposition Patient Disposition: Home Condition: Good Discharge Details Reason For Visit: Paracentesis Attending Provider: James Barry Primary Care Provider: Kong Shrestha Home Meds and New Rx's Prescriptions: Continued tramadol 100 mg tablet 100 mg PO BID PRN (Reason: pain) Qty: 20 1RF Rx Instructions: take 1 tab by mouth as needed for pain amitriptyline 10 mg tablet 10 mg PO QHS omega 4-gvf-vbp-fish oil [Fish Oil] 60-90-500 mg capsule 1 cap PO DAILY hydroxyzine HCl 25 mg tablet 25 mg PO TID PRN furosemide [Lasix] 20 mg tablet 20 mg PO DAILY magnesium oxide 400 mg magnesium capsule 400 mg PO DAILY polyethylene glycol 3350 [Miralax] 17 gram/dose powder 17 g PO DAILY PRN omeprazole 20 mg capsule,delayed release(DR/EC) 20 mg PO DAILY spironolactone 100 mg tablet 100 mg PO DAILY zolpidem 5 mg tablet 5 mg PO QHS Qty: 30 0RF acetaminophen 500 mg Capsule 1,000 mg PO QID PRN milk thistle 200 mg Capsule 200 mg PO DAILY Rx Instructions: give with meal/snack potassium chloride 20 mEq tablet,ER particles/crystals 1 tab PO QWEEK Patient Comments: pt no longer takes this medication 12/02/2022 CT folic acid 1 mg tablet 1 tab PO DAILY Patient Comments: TAKE ONE TABLET BY MOUTH EVERY DAY zinc 50 mg Tablet 50 mg PO DAILY Ensure High Protein Liquid 125 ml PO DAILY PRN Patient Comments: DRINK 1 BOTTLE BY MOUTH ONCE DAILY Discharge Instructions Additional Instructions: Rodríguez, it was great to see you today, and I hope you have a happy of March. Just as a reminder, we drained about 5 L off today. I hope things go well with Maurice and you can make little progress on your umbilical hernia. Let me know whenever you need a paracentesis, we will get you in as quick as we can. Activity:: Activity as Tolerated Diet:: As Tolerated Discharge Orders Discharge Orders: Discharge Order (Routine); Ordered 03/25/23 Ordered By: James Barry DS: Diagnosis Discharge Diagnosis (1) Ascites due to alcoholic cirrhosis: Status: Acute
[2023-03-26 09:20] VITALS: BP 109/74; PULSE 73; RESP 16; TEMP 36.2; O2SAT 99
[2023-03-26] MEDS: Lactated Ringers 1,000 ML 80 ML IV (10:08)
[2023-03-26 11:47] VITALS: BP 104/70; PULSE 73; RESP 16; TEMP 36.3; O2SAT 99
[2023-03-26] MEDS: ALBUMIN HUMAN 25 GM/100 ML BTL IVPB (11:56)
== END 2023-03-26 12:26 | disposition home or self-care (01) ==
LOC: SUR 09:20
PROVIDERS: PCP Internal Medicine; Visit Provider Surgery
PROC: 0W9G3ZZ Drainage of Peritoneal Cavity, Percutaneous Approach (ICD-10-PCS; CPT 49082; principal; 2023-03-26 10:15)
DX: K70.31 Alcoholic cirrhosis of liver with ascites (principal)
CPT/HCPCS: 49083; 96365